=== PATIENT | female | born 2000 | race Caucasian/White ===

== ENCOUNTER 2020-03-03 13:22 | Inpatient (IN) | payer BC ==
--- NOTE | 2020-03-03 13:58 | EDM.PDOC ---
ED HPI GENERAL MEDICAL PROBLEM - General Chief Complaint: Respiratory Problem Stated Complaint: COVID + Time Seen by Provider: 03/03/20 13:48 Source of Information: Reports: Patient History Limitations: Reports: No Limitations - History of Present Illness INITIAL COMMENTS - FREE TEXT/NARRATIVE: 20-year-old female presents to the ED due to increased dyspnea at home. Patient became ill last February 24 with acute onset of fever chills and body aches and mild headache. Condition continued to gradually worsen over the week. She was therefore tested for COVID-19 illness on ThursdayFeb 27 and and was reportedly positive on -. Therefore she is on about day 8 of current illness. O2 sats on room air here are 71%. She is morbidly obese with an estimated weight by her of 460 pounds. She is not diabetic. She takes no medications. She was placed on oxygen by nursing staff and titrated up to 5 L/min by nasal cannula. I have placed her on 6 L. O2 sats range between 90 and 96%. She reports she is not been able to sleep lying flat for the last 3 days. She has been sleeping upright in a recliner. She has had fever and chills persisting even up until today. She has been using Tylenol and Motrin for fever and body ache relief. Loss of appetite for 3 days. Has been taking adequate fluids but only yogurt and a few other soft foods. No diarrhea. 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 She lives at home with her parents. Patient denies any possibility of as she is not sexually active. Onset: Sudden Onset Date: 02/25/20 Duration: Day(s):, Constant, Getting Worse Location: Reports: Chest (Dyspnea) Quality: Reports: Other (Dyspnea at rest with persistent fever secondary to COVID-19 illness.) Severity: Moderate Improves with: Reports: Rest, Other (Sitting up. She cannot lay flat.) Worsens with: Reports: Movement (Walking plays around immediately. She cannot lie flat.) Associated Symptoms: Reports: Cough, cough w sputum, Fever/Chills, Headaches, Loss of Appetite (Headaches initially onset of illness better now.), Malaise, Shortness of Breath, Weakness (Lysed weakness.). Denies: Confusion, Chest Pain, Diaphoresis (Amounts of white sputum.), Nausea/Vomiting, Rash, Seizure, Syncope (At rest.) Treatments BAKERY DEMONSTRATOR: Reports: Acetaminophen Chest Pain Score (Numeric/FACES): 4 - Related Data Allergies Allergy/AdvReac Type Severity Reaction Status Date / Time No Known Allergies Allergy Verified 03/03/20 13:33 Home Meds: Home Meds Spironolactone [Aldactone] 50 mg PO BID 03/03/20 [History] Past Medical History Endocrine/Metabolic History: Reports: Obesity/BMI 30+ Social & Family History - Living Situation & Occupation Living situation: Reports: Single, with Family (Lives with her parents.) Occupation: Employed (Patient works as a speech therapist at [employer] here in [place].) ED ROS GENERAL - Review of Systems Review Of Systems: See Below Constitutional: Reports: Fever, Chills, Malaise, Weakness, Fatigue, Decreased Appetite HEENT: Reports: Other Respiratory: Reports: Shortness of Breath (Tita had sore throat now somewhat be tter.), Cough, Sputum (Is no white sputum production.). Denies: Wheezing, Pleuritic Chest Pain, Hemoptysis Cardiovascular: Reports: Dyspnea on Exertion, Orthopnea. Denies: Chest Pain, Blood Pressure Problem, Claudication, Edema, Lightheadedness Endocrine: Reports: Fatigue (There.) GI/Abdominal: Reports: Diarrhea (Had some mild diarrhea with initial onset of illness but not now.), Decreased Appetite (Taking adequate fluids but not able to take much in the way of solids.) : Reports: No Symptoms Musculoskeletal: Reports: Muscle Pain (Mild generalized myalgia. Better than it was initially.) Skin: Reports: No Symptoms Neurological: Reports: Headache, Difficulty Walking (Due to weakness. And shortness of breath on exertion.), Weakness. Denies: Confusion, Dizziness, Numbness, Syncope, Tingling Psychiatric: Reports: No Symptoms Hematologic/Lymphatic: Reports: No Symptoms Immunologic: Reports: No Symptoms ED EXAM, GENERAL - Physical Exam Exam: See Below Exam Limited By: No Limitations General Appearance: Alert, WD/WN, Mild Distress, Other (Temperature is 38.4. Heart rate was 116 at the bedside respiratory rate of 32/min with O2 sats of 71% on room air. She was placed immediately on oxygen titrated up to 6 L/min to maintain sats of 92% to 95%. Blood pressure is normal at 128/55. He was with blood pressure cuff on left forearm) Eye Exam: Bilateral Eye: Normal Inspection Throat/Mouth: Normal Inspection, Normal Lips, Normal Oropharynx, Other Head: Atraumatic, Normocephalic Neck: Normal Inspection, Supple, Non-Tender, Full Range of Motion. No: Lymphadenopathy (L), Lymphadenopathy (R) Respiratory/Chest: Lungs Clear (Tachypneic at rest 32/min with O2 sats of only 71% on room air.), Respiratory Distress, Decreased Breath Sounds (Decreased breath sounds to both posterior lung hadley due to obesity.). No: Rales, Rhonchi, Wheezing Cardiovascular: Normal Peripheral Pulses, No Edema, No Gallop (Minus tachycardia 116/min.), No Murmur, No Rub, Tachycardia Peripheral Pulses: 3+: Carotid (L), Carotid (R), Posterior Tibial (L), Posterior Tibial (R), Dorsalis Pedis (L), Dorsalis Pedis (R) GI/Abdominal: Soft, Non-Tender, No Organomegaly, No Mass, Pelvis Stable, Other (Morbidly obese. This limits ability to palpate solid organs. No surgical scars.) Back Exam: No: CVA Tenderness (L), CVA Tenderness (R) Extremities: Normal Inspection, Normal Range of Motion, Non-Tender Neurological: Alert, Oriented, CN II-XII Intact, Normal Cognition Psychiatric: Normal Affect, Normal Mood Skin Exam: Warm, Dry, Intact, Normal Color, No Rash EKG INTERPRETATION EKG Date: 03/03/20 Time: 14:29 Rhythm: Other (Sinus tachycardia at 101/min.) Rate (Beats/Min): 101 [place]: Normal QRS: Other (Initial poor R wave transition may be due to lead placement. Decreased voltage precordial leads. Tall R waves in lead I suggest possibility of left ventricular appear to be.) ST-T: Normal QT: Prolonged (Minimally prolonged.) EKG Interpretation Comments: Borderline ECG. Course - Vital Signs Last Recorded V/S: Last Vital Signs Temp 38.4 C H 03/03/20 13:30 Pulse 116 H 03/03/20 13:30 Resp 32 H 03/03/20 13:30 BP 128/55 L 03/03/20 13:30 Pulse Ox 89 L 03/03/20 14:05 - Orders/Labs/Meds Orders: Active Orders 24 hr Category Date Time Status Admission Status [Patient Status] [ADT] Routine ADT 03/03/20 17:44 Ordered EKG Documentation Completion [RC] STAT Care 03/03/20 14:02 Active Oxygen Therapy [RC] ASDIRECTED Care 03/03/20 14:05 Active URINALYSIS W/MICROSCOPIC [UA W/MICROSCOPIC] [URIN] Stat Lab 03/03/20 14:04 Ordered Dextrose 5%-0.9% NaCl [Dextrose 5%-Normal Saline] 1,000 Med 03/03/20 14:15 Active ml IV ASDIRECTED Remdesivir (Eua) [Remdesivir (EUA)] 100 mg Med 03/05/20 15:00 Active Sodium Chloride 0.9% [Normal Saline] 100 ml IV Q24H Sodium Chloride 0.9% [Normal Saline] 100 ml Med 03/03/20 16:15 Active IV ASDIRECTED Sodium Chloride 0.9% [Saline Flush] Med 03/03/20 16:11 Active 10 ml FLUSH ONETIME PRN Tocilizumab [Actemra] 800 mg Med 03/03/20 21:00 Active Sodium Chloride 0.9% [Normal Saline] 60 ml IV Q12H dexAMETHasone [Dexamethasone] Med 03/03/20 15:00 Active 6 mg IVPUSH Q24H Isolation [COMM] Routine Oth 03/03/20 13:48 Ordered Medication Orders Dexamethasone (Dexamethasone) 6 mg IVPUSH Q24H LOUISE Last Admin: 03/03/20 15:49 Dose: 6 mg Documented by: [id number] Dextrose/Sodium Chloride (Dextrose 5%-Normal Saline) 1,000 mls @ 200 mls/hr IV ASDIRECTED LOUISE Last Admin: 03/03/20 14:36 Dose: 200 mls/hr Documented by: TY Remdesivir 100 mg/ Sodium (Chloride) 100 mls @ 100 mls/hr IV Q24H LOUISE Sodium Chloride (Normal Saline) 100 mls @ 75 mls/hr IV ASDIRECTED LOUISE Last Admin: 03/03/20 17:00 Dose: 75 mls/hr Documented by: MISTY Tocilizumab 800 mg/ Sodium (Chloride) 100 mls @ 100 mls/hr IV Q12H LOUISE Stop: 03/04/20 09:59 Sodium Chloride (Saline Flush) 10 ml FLUSH ONETIME PRN PRN Reason: IV FLUSH Last Admin: 03/03/20 16:59 Dose: 10 ml Documented by: MISTY Labs: Laboratory Tests 03/03/20 03/03/20 03/03/20 Range/Units 14:30 14:30 14:30 WBC 5.19 (3.98-10.04) K/mm3 RBC 4.62 (3.98-5.22) M/mm3 Hgb 13.2 (11.2-15.7) gm/dl Hct 41.8 (34.1-44.9) % MCV 90.5 (79.4-94.8) fl MCH 28.6 (25.6-32.2) pg MCHC 31.6 L (32.2-35.5) g/dl RDW Std Deviation 48.5 H (36.4-46.3) fL Plt Count 277 (182-369) K/mm3 MPV 9.5 (9.4-12.3) fl Neut % (Auto) 70.4 (34.0-71.1) % Lymph % (Auto) 18.7 L (19.3-51.7) % [place] % (Auto) 9.2 (4.7-12.5) % Eos % (Auto) 0 L (0.7-5.8) Baso % (Auto) 0.4 (0.1-1.2) % Neut # (Auto) 3.65 (1.56-6.13) K/mm3 Lymph # (Auto) 0.97 L (1.18-3.74) K/mm3 [place] # (Auto) 0.48 H (0.24-0.36) K/mm3 Eos # (Auto) 0.00 L (0.04-0.36) K/mm3 Baso # (Auto) 0.02 (0.01-0.08) K/mm3 PT 10.9 (9.7-11.7) SECONDS INR 1.02 APTT 34 H (22-31) SECONDS D-Dimer, Quantitative 0.72 H (0.19-0.50) mg/L Puncture Site ABG pH (7.35-7.45) ABG pCO2 (35.0-45.0) mmHg ABG pO2 (80.0-100.0) mmHg ABG HCO3 (22.0-26.0) meq/L ABG O2 Saturation (96.0-97.0) % ABG Base Excess (-2-2.0) Jak Test A-a Gradient mmHg O2 Delivery Device Oxygen Flow Rate FiO2 (21.00-100.00) % Sodium 137 (136-145) mEq/L Potassium 3.6 (3.5-5.1) mEq/L Chloride 101 (98-107) mEq/L Carbon Dioxide 25 (21-32) mEq/L Anion Gap 14.6 (5-15) BUN 13 (7-18) mg/dL Creatinine 0.8 (0.55-1.02) mg/dL Est Cr Clr Drug Dosing 111.27 mL/min Estimated GFR (MDRD) > 60 (>60) mL/min BUN/Creatinine Ratio 16.3 (14-18) Glucose 100 (74-106) mg/dL Calcium 8.5 (8.5-10.1) mg/dL Magnesium 2.1 (1.8-2.4) mg/dl Ferritin (8-252) ng/ml Total Bilirubin 0.4 (0.2-1.0) mg/dL AST 47 H (15-37) U/L ALT 52 (14-59) U/L Alkaline Phosphatase 48 (46-116) U/L Lactate Dehydrogenase 473 H (81-234) U/L Troponin I 0.041 (0.00-0.056) ng/mL C-Reactive Protein (<1.0) mg/dL NT-Pro-B Natriuret Pep (0-125) pg/mL Total Protein 7.9 (6.4-8.2) g/dl Albumin 3.0 L (3.4-5.0) g/dl Globulin 4.9 gm/dL Albumin/Globulin Ratio 0.6 L (1-2) TSH 3rd Generation 1.511 (0.358-3.74) uIU/mL HCG, Qual (NEGATIVE) 03/03/20 03/03/20 03/03/20 Range/Units 14:30 14:30 14:30 WBC (3.98-10.04) K/mm3 RBC (3.98-5.22) M/mm3 Hgb (11.2-15.7) gm/dl Hct (34.1-44.9) % MCV (79.4-94.8) fl MCH (25.6-32.2) pg MCHC (32.2-35.5) g/dl RDW Std Deviation (36.4-46.3) fL Plt Count (182-369) K/mm3 MPV (9.4-12.3) fl Neut % (Auto) (34.0-71.1) % Lymph % (Auto) (19.3-51.7) % [place] % (Auto) (4.7-12.5) % Eos % (Auto) (0.7-5.8) Baso % (Auto) (0.1-1.2) % Neut # (Auto) (1.56-6.13) K/mm3 Lymph # (Auto) (1.18-3.74) K/mm3 [place] # (Auto) (0.24-0.36) K/mm3 Eos # (Auto) (0.04-0.36) K/mm3 Baso # (Auto) (0.01-0.08) K/mm3 PT (9.7-11.7) SECONDS INR APTT (22-31) SECONDS D-Dimer, Quantitative (0.19-0.50) mg/L Puncture Site ABG pH (7.35-7.45) ABG pCO2 (35.0-45.0) mmHg ABG pO2 (80.0-100.0) mmHg ABG HCO3 (22.0-26.0) meq/L ABG O2 Saturation (96.0-97.0) % ABG Base Excess (-2-2.0) Jak Test A-a Gradient mmHg O2 Delivery Device Oxygen Flow Rate FiO2 (21.00-100.00) % Sodium (136-145) mEq/L Potassium (3.5-5.1) mEq/L Chloride (98-107) mEq/L Carbon Dioxide (21-32) mEq/L Anion Gap (5-15) BUN (7-18) mg/dL Creatinine (0.55-1.02) mg/dL Est Cr Clr Drug Dosing mL/min Estimated GFR (MDRD) (>60) mL/min BUN/Creatinine Ratio (14-18) Glucose (74-106) mg/dL Calcium (8.5-10.1) mg/dL Magnesium (1.8-2.4) mg/dl Ferritin 331 H (8-252) ng/ml Total Bilirubin (0.2-1.0) mg/dL AST (15-37) U/L ALT (14-59) U/L Alkaline Phosphatase (46-116) U/L Lactate Dehydrogenase (81-234) U/L Troponin I (0.00-0.056) ng/mL C-Reactive Protein 15.5 H* (<1.0) mg/dL NT-Pro-B Natriuret Pep 559 H (0-125) pg/mL Total Protein (6.4-8.2) g/dl Albumin (3.4-5.0) g/dl Globulin gm/dL Albumin/Globulin Ratio (1-2) TSH 3rd Generation (0.358-3.74) uIU/mL HCG, Qual Negative (NEGATIVE) 03/03/20 Range/Units 15:45 WBC (3.98-10.04) K/mm3 RBC (3.98-5.22) M/mm3 Hgb (11.2-15.7) gm/dl Hct (34.1-44.9) % MCV (79.4-94.8) fl MCH (25.6-32.2) pg MCHC (32.2-35.5) g/dl RDW Std Deviation (36.4-46.3) fL Plt Count (182-369) K/mm3 MPV (9.4-12.3) fl Neut % (Auto) (34.0-71.1) % Lymph % (Auto) (19.3-51.7) % [place] % (Auto) (4.7-12.5) % Eos % (Auto) (0.7-5.8) Baso % (Auto) (0.1-1.2) % Neut # (Auto) (1.56-6.13) K/mm3 Lymph # (Auto) (1.18-3.74) K/mm3 [place] # (Auto) (0.24-0.36) K/mm3 Eos # (Auto) (0.04-0.36) K/mm3 Baso # (Auto) (0.01-0.08) K/mm3 PT (9.7-11.7) SECONDS INR APTT (22-31) SECONDS D-Dimer, Quantitative (0.19-0.50) mg/L Puncture Site Lt radial ABG pH 7.41 (7.35-7.45) ABG pCO2 39.6 (35.0-45.0) mmHg ABG pO2 60.0 L (80.0-100.0) mmHg ABG HCO3 24.6 (22.0-26.0) meq/L ABG O2 Saturation 88.9 L (96.0-97.0) % ABG Base Excess 0.5 (-2-2.0) Jak Test Positive A-a Gradient 204 mmHg O2 Delivery Device Nasal cannula Oxygen Flow Rate 6.0 FiO2 44.00 (21.00-100.00) % Sodium (136-145) mEq/L Potassium (3.5-5.1) mEq/L Chloride (98-107) mEq/L Carbon Dioxide (21-32) mEq/L Anion Gap (5-15) BUN (7-18) mg/dL Creatinine (0.55-1.02) mg/dL Est Cr Clr Drug Dosing mL/min Estimated GFR (MDRD) (>60) mL/min BUN/Creatinine Ratio (14-18) Glucose (74-106) mg/dL Calcium (8.5-10.1) mg/dL Magnesium (1.8-2.4) mg/dl Ferritin (8-252) ng/ml Total Bilirubin (0.2-1.0) mg/dL AST (15-37) U/L ALT (14-59) U/L Alkaline Phosphatase (46-116) U/L Lactate Dehydrogenase (81-234) U/L Troponin I (0.00-0.056) ng/mL C-Reactive Protein (<1.0) mg/dL NT-Pro-B Natriuret Pep (0-125) pg/mL Total Protein (6.4-8.2) g/dl Albumin (3.4-5.0) g/dl Globulin gm/dL Albumin/Globulin Ratio (1-2) TSH 3rd Generation (0.358-3.74) uIU/mL HCG, Qual (NEGATIVE) Meds: Medications Generic Name Dose Route Start Last Admin Trade Name Freq PRN Reason Stop Dose Admin Dexamethasone 6 mg 03/03/20 15:00 03/03/20 15:49 Dexamethasone IVPUSH 6 mg Q24H LOUISE Administration Dextrose/Sodium Chloride 1,000 mls @ 200 mls/hr 03/03/20 14:15 03/03/20 14:36 Dextrose 5%-Normal Saline IV 200 mls/hr ASDIRECTED LOUISE Administration Remdesivir 100 mg/ Sodium 100 mls @ 100 mls/hr 03/05/20 15:00 Chloride IV Q24H LOUISE Sodium Chloride 100 mls @ 75 mls/hr 03/03/20 16:15 03/03/20 17:00 Normal Saline IV 75 mls/hr ASDIRECTED LOUISE Administration Tocilizumab 800 mg/ Sodium 100 mls @ 100 mls/hr 03/03/20 21:00 Chloride IV 03/04/20 09:59 Q12H LOUISE Sodium Chloride 10 ml 03/03/20 16:11 03/03/20 16:59 Saline Flush FLUSH 10 ml ONETIME PRN Administration IV FLUSH Discontinued Medications Generic Name Dose Route Start Last Admin Trade Name Freq PRN Reason Stop Dose Admin Acetaminophen 975 mg 03/03/20 15:16 03/03/20 16:11 Tylenol PO 03/03/20 15:17 975 mg ONETIME ONE Administration Remdesivir 200 mg/ Sodium 250 mls @ 250 mls/hr 03/03/20 14:51 03/03/20 15:55 Chloride IV 03/03/20 14:52 250 mls/hr ONETIME STA Administration Iopamidol 50 ml 03/03/20 16:11 03/03/20 16:59 Isovue-370 (76%) IVPUSH 03/03/20 16:12 50 ml ONETIME ONE Administration Iopamidol 100 ml 03/03/20 16:11 03/03/20 16:59 Isovue-370 (76%) IVPUSH 03/03/20 16:12 100 ml ONETIME ONE Administration Tocilizumab 800 mg 03/03/20 21:00 Actemra IV 03/04/20 09:01 Q12HR LOUISE - Radiology Interpretation Free Text/Narrative:: 20-year-old female presents to the ED with gradually worsening dyspnea over the last 3 days in particular. She has not been able to lie flat to sleep for the last 3 days. She has been sleeping in a recliner. Illness started suddenly last February 24. Onset of fever chills and headache and generalized myalgia. Cough started shortly thereafter. It is minimally productive of a white sputum. She continues to have fever and chills. Continues to use Tylenol on a every 4 to 6-hour basis. O2 sats upon arrival here were only 71% on room air. She required oxygen by nasal cannula titrated up to 6L/min to maintain sats greater than 92%. Plan she will require a chest x-ray and COVID-19 work- up. Clinically she will require admission to hospital due to hypoxia. - Re-Assessments/Exams Free Text/Narrative Re-Assessment/Exam: 03/03/20 15:00: Chest x-ray reveals heart size and mediastinum are within normal limits for portable technique. Patchy areas of increased density within the right upper and right lower lung as well as diffusely within the left lung with viral pneumonia after a stick of COVID-19 illness. I have discussed the case with hospitalist Dr. Storey and she will see the patient in the ED. Plan will be to have a CT pulmonary angiogram performed since she is so hypoxic on room air. Patient will be given 6 mg of dexamethasone IV now. Dr. Storey will also put in orders for Remdesivir IV. 03/03/20 15:33 Labs reveal a white count of 5.19. Differential shows 70% neutrophils on the auto differential. Hemoglobin is 13.2 with hematocrit of 41.8. Platelet counts 277,000. PT is 10.9 with an INR of 1.02. PTT is 34. D- dimer is elevated at 0.72. Sodium 137 with a potassium 3.6. Chloride 101 with a bicarb 25. Anion gap is 14.6. BUN is 13 with a creatinine of 0.8. GFR is greater than 60. BUN/creatinine ratio 16.3. Glucose 100. Calcium 8.5. Magnesium 2.1. Serum ferritin elevated at 331. Bilirubin 0.4 with a AST slightly elevated at 47. ALT is 52 alk phos stays normal at 48. LDH is elevated at 473. Troponin I is 0.041. BNP is elevated at 559. Total protein is 7.9 with an albumin fraction slightly low at 3.0. TSH is 1.5. Beta-hCG is negative. 03/03/20 15:52: ABGs have been done. They reveal a pH of 7.41 with a PCO2 of 39.6 and a PO2 of less than 60. O2 sats were 88.9% and this was carried out on 6 L/min by nasal cannula. Dr. Storey is aware of the ABG results. 03/03/20 17:46 Patient will now be admitted to the hospital per Dr. Storey-- hospitalist. Her CT pulmonary angiogram has been completed. Pulmonary arteries are not optimally opacified. 2 different attempts were made. No findings of pulmonary embolism within the main or proximal segmental branches are identified. Smaller subsegmental pulmonary emboli could easily be missed. Aorta shows no aneurysm. Heart shows no pericardial effusion. Fatty infiltration noted within the liver. Lung window settings show diffuse parenchymal densities within both sides of the chest with both upper and lower lungs involved. Findings have the appearance of COVID-19 pneumonia. No pleural effusion is seen. Departure - Departure Time of Disposition: 17:51 Disposition: Admitted As Inpatient 64 Condition: Serious Clinical Impression: COVID-19, Hypoxia, Viral pneumonia, Morbid obesity with BMI of 60.0-69.9, adult - Discharge Information Referrals: Cheyenne Moseley PA-C [Primary Care Provider] - Forms: ED Department Discharge Sepsis Event Note (ED) - Evaluation Sepsis Screening Result: No Definite Risk - Focused Exam Vital Signs: Vital Signs Temp Pulse Resp BP Pulse Ox Pulse Ox 03/03/20 14:05 89 L 03/03/20 13:30 38.4 C H 116 H 32 H 128/55 L 71 L - My Orders Last 24 Hours: My Active Orders 03/03/20 13:48 Isolation [COMM] Routine 03/03/20 14:02 EKG Documentation Completion [RC] STAT 03/03/20 14:04 URINALYSIS W/MICROSCOPIC [UA W/MICROSCOPIC] [URIN] Stat 03/03/20 14:05 Oxygen Therapy [RC] ASDIRECTED 03/03/20 14:15 Dextrose 5%-0.9% NaCl [Dextrose 5%-Normal Saline] 1,000 ml IV ASDIRECTED 03/03/20 16:11 Sodium Chloride 0.9% [Saline Flush] 10 ml FLUSH ONETIME PRN 03/03/20 16:15 Sodium Chloride 0.9% [Normal Saline] 100 ml IV ASDIRECTED 03/03/20 17:44 Admission Status [Patient Status] [ADT] Routine 03/03/20 21:00 Tocilizumab [Actemra] 800 mg Sodium Chloride 0.9% [Normal Saline] 60 ml IV Q12H - Assessment/Plan Last 24 Hours: My Active Orders 03/03/20 13:48 Isolation [COMM] Routine 03/03/20 14:02 EKG Documentation Completion [RC] STAT 03/03/20 14:04 URINALYSIS W/MICROSCOPIC [UA W/MICROSCOPIC] [URIN] Stat 03/03/20 14:05 Oxygen Therapy [RC] ASDIRECTED 03/03/20 14:15 Dextrose 5%-0.9% NaCl [Dextrose 5%-Normal Saline] 1,000 ml IV ASDIRECTED 03/03/20 16:11 Sodium Chloride 0.9% [Saline Flush] 10 ml FLUSH ONETIME PRN 03/03/20 16:15 Sodium Chloride 0.9% [Normal Saline] 100 ml IV ASDIRECTED 03/03/20 17:44 Admission Status [Patient Status] [ADT] Routine 03/03/20 21:00 Tocilizumab [Actemra] 800 mg Sodium Chloride 0.9% [Normal Saline] 60 ml IV Q12H
[2020-03-03] MEDS: Dextrose 5%-0.9% NaCl 1,000 ML IV SCH ×2 (14:36→20:12)
--- NOTE | 2020-03-03 14:48 | CR ---
Chest: Portable view of the chest was obtained. Comparison: No previous chest imaging is available. Heart size and mediastinum are within normal limits for portable technique. Patchy areas of increased density within the right upper and right lower lung as well as diffusely within the left lung. Bony structures are grossly intact. Impression: 1. Patchy areas of increased density on both sides of the chest. Given the multifocal nature of this finding, this is most likely due to Covid pneumonia. Diagnostic code #5 This report was dictated in MDT
[2020-03-03] MEDS ORDERED: Acetaminophen 325 MG Tab PO ONE (15:16)
[2020-03-03] MEDS: Dexamethasone 4 MG/ML SDV IVPUSH SCH (15:49)
[2020-03-03] MEDS ORDERED: Iopamidol 755 MG/ML 50 ML Bottle IVPUSH ONE (16:11)
[2020-03-03] MEDS ORDERED: Sodium Chloride 0.9% 10 ML Syringe FLUSH PRN (16:11)
[2020-03-03] MEDS ORDERED: Iopamidol 755 Mg/ML 100 ML Bottle IVPUSH ONE (16:11)
[2020-03-03] MEDS ORDERED: Sodium Chloride 0.9% 100 ML IV SCH (16:15)
--- NOTE | 2020-03-03 17:25 | CT ---
CT chest Technique: Multiple axial sections through the chest were obtained. Intravenous contrast was utilized. Comparison: Prior chest x-ray performed earlier on the same day (2:08 PM). Findings: Pulmonary arteries are not optimally opacified. 2 different attempts were made. No findings of pulmonary embolism within the main or proximal segmental branches are seen. Smaller subsegmental pulmonary emboli could easily be missed. Aorta shows no aneurysm. Heart shows no pericardial effusions. Fatty infiltration is noted within the liver. Lung window settings shows diffuse parenchymal densities within both sides of the chest within both upper and lower lungs. Findings have the appearance of Covid pneumonia. No pleural effusion is seen. Bone window settings were reviewed and shows no acute osseous finding. Impression: 1. Diffuse parenchymal densities on both sides of the chest having the appearance of Covid pneumonia. 2. No findings of pulmonary embolism within the main or segmental branches. Smaller subsegmental pulmonary emboli could be missed on this exam. 3. No additional abnormality is definitely appreciated. Diagnostic code #5 This report was dictated in MDT
[2020-03-03] MEDS ORDERED: Ondansetron 4 MG/2 ML SDV IV PRN (17:35)
[2020-03-03] MEDS ORDERED: Ondansetron 4 MG Tab.DIS PO PRN (17:35)
--- NOTE | 2020-03-03 17:49 | PCM.HP.2 ---
H&P History of Present Illness - General Date of Service: 03/03/20 Admit Problem/Dx: Admission Diagnosis/Problem Admission Diagnosis/Problem Viral pneumonia - History of Present Illness Initial Comments - Free Text/Narative: 20-year-old female presents to the ED due to increased dyspnea at home. As per patient was in usual state of health until last February 24 with acute onset of fever chills and body aches and mild headache which continued to worsen Associated with decrease oral intake, dry cough, malaise, aches and pains, fever measured at 103. Has been having orthopnea, sleeping only in recliner. Has been using Tylenol and Motrin for fever and body ache relief. Loss of appetite for 3 days. Has been taking adequate fluids but only yogurt and a few other soft foods. No diarrhea. Chest Pain Score (Numeric/FACES): 4 - Related Data Allergies/Adverse Reactions: Allergies Allergy/AdvReac Type Severity Reaction Status Date / Time No Known Allergies Allergy Verified 03/04/20 03:56 Home Medications: Home Meds Spironolactone [Aldactone] 50 mg PO BID 03/03/20 [History] Past Medical History HEENT History: Reports: Impaired Vision, Otitis Media Other HEENT History: wears eyeglasses Endocrine/Metabolic History: Reports: Obesity/BMI 30+ Dermatologic History: Reports: Other (See Below) Other Dermatologic History: acne - Infectious Disease History Infectious Disease History: Reports: Novel Coronavirus Social & Family History - Tobacco Use Smoking Status *Q: Never Smoker Second Hand Smoke Exposure: No - Caffeine Use Caffeine Use: Reports: None - Recreational Drug Use Recreational Drug Use: No - Living Situation & Occupation Living situation: Reports: Single, with Family (Lives with her parents.) Occupation: Employed (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 Denies: Night Sweats, Diaphoresis HEENT: Denies: Ear Pain, Eye Pain, Headaches, Hearing Changes, Rhinitis, Post Nasal Drip, Sinus Congestion, Sore Throat, Vertigo, Visual Changes Pulmonary: Reports: Shortness of Breath, Wheezing, Cough. Denies: Pleuritic Chest Pain, Sputum, Hemoptysis Cardiovascular: Reports: Dyspnea on Exertion, Orthopnea, PND, Edema, Lightheadedness. Denies: Chest Pain, Palpitations, Syncope, Claudication Gastrointestinal: Reports: Decreased Appetite. Denies: Abdominal Pain, Anorexia, Constipation, Diarrhea, Nausea, Vomiting Genitourinary: Denies: Dysuria, Frequency, Burning, Pain, Urgency, Incontinence Musculoskeletal: Denies: Joint Pain, Joint Swelling, Muscle Pain, Muscle Stiffness Skin: Denies: Cyanosis, Jaundice, Mottled, Pallor Psychiatric: Denies: Confusion, Depression, Mood Lability, Anxiety Neurological: Denies: Confusion, Dizziness, Headache, Numbness Exam - Exam Exam: See Below - Vital Signs Vital Signs: Last Vital Signs Temp 101.2 F H 03/03/20 13:30 Pulse 116 H 03/03/20 13:30 Resp 32 H 03/03/20 13:30 BP 128/55 L 03/03/20 13:30 Pulse Ox 89 L 03/03/20 14:05 Weight: 208.652 kg - Exam Quality Assessment: Supplemental Oxygen, Other (CONFOUNDED BY BODY HABITUS) General: Alert, Oriented, Mild Distress, Moderate Distress HEENT: Conjunctiva Clear, EACs Clear, EOMI, Mucosa Moist & [place] Neck: Supple Lungs: Decreased Breath Sounds, Crackles. No: Rales, Rhonchi, Rub, Stridor, Wheezing Cardiovascular: Regular Rate, Regular Rhythm. No: Systolic Murmur, Diastolic Murmur, Rubs, Gallop/S3, Gallop/S4 GI/Abdominal Exam: Normal Bowel Sounds, Soft, Non-Tender, Distended. No: Guarding, Rigid, Rebound Extremities: Normal Inspection, Normal Capillary Refill, Pedal Edema Peripheral Pulses: 2+: Radial (L), Radial (R) - Patient Data Result Diagrams: 03/04/20 05:32 03/04/20 05:32 Sepsis Event Note - Evaluation Sepsis Screening Result: No Definite Risk - Problem List (1) Pneumonia due to COVID-19 virus SNOMED Code(s): 758607678 ICD Code: U07.1 - COVID-19; J12.89 - OTHER VIRAL PNEUMONIA Status: Acute Current Visit: Yes (2) Acute hypoxemic respiratory failure due to COVID-19 SNOMED Code(s): 770034832 ICD Code: U07.1 - COVID-19; J96.01 - ACUTE RESPIRATORY FAILURE WITH HYPOXIA Status: Acute Current Visit: Yes (3) Tachycardia SNOMED Code(s): 8792291 ICD Code: R00.0 - TACHYCARDIA, UNSPECIFIED Status: Acute Current Visit: Yes (4) Fever SNOMED Code(s): 121768184 ICD Code: R50.9 - FEVER, UNSPECIFIED Status: Acute Current Visit: Yes (5) Hypoalbuminemia SNOMED Code(s): 787025550 ICD Code: E88.09 - [facility] DISORDERS OF PLASMA-PROTEIN METABOLISM, NEC Status: Acute Current Visit: Yes (6) Morbid obesity with BMI of 60.0-69.9, adult SNOMED Code(s): 166479417, 70934959306891 ICD Code: E66.01 - MORBID (SEVERE) OBESITY DUE TO EXCESS CALORIES; Z68.44 - BODY MASS INDEX (BMI) 60.0-69.9, ADULT Status: Acute Current Visit: Yes Problem List Initiated/Reviewed/Updated: Yes Assessment/Plan Comment:: ASSESSMENT Diagnosed around 8 days ago Has been having worsening shortness of breath, orthopnea, fatigue, malaise, fevers and chills On arrival to emergency department she was satting 71% on room air--> placed on nasal cannula at 6 L/min--> pulse ox came up to 92% Vital signs on admission: Blood pressure 128/55 (79); heart rate 116; respiratory rate 32; temp: 1.2; pulse ox 91% on room air Chest x-ray with increased density on right lung mainly in upper and lower lung and diffusely on left lung Admit labs: WBC 5.19, 30% neutrophils, no bands D-dimer 0.72 GFR greater than 60 Ferritin 331, LDH 473, troponin 0.0 41 Albumin 3 ABGs7.41/39.6/60/24.6/80 on 6 L/min nasal cannula (44%) CTA of the chest suboptimal but no blood clots were seen and diffuse parenchymal densities within both sides of the chest PLAN Pneumonia due to COVID-19 virus Acute hypoxemic respiratory failure due to COVID-19 Tachycardia/Fever Start Remdesivir to complete 5 days Start dexamethasone to complete 10 days Start Actemra x2 doses Order plasma infusion x2 Pulse ox goal between 92 and 96% Taper off nasal cannula as tolerated Maximum isolation precautions RT assess and treat Incentive spirometer and Acapella Procalcitonin level Morbid obesity with BMI of 60.0-69.9, adult Hypoalbuminemia Dietary consult Prealbumin level PROPHYLAXIS DVTLovenox 40 mg twice a day GInot indicated CODE STATUS: FULL CODE DISPOSITION: Patient with significant hypoxemia due to COVID pneumonia will be admitted for Remdesivir, Actemra, dexamethasone and convalescent plasma infusions. Oxygen supplementation is being provided and will taper down as tolerated - Mortality Measure Prognosis:: Good
[2020-03-03] MEDS ORDERED: Enoxaparin 40 MG/0.4 ML Syringe SUBCUT SCH (18:00)
[2020-03-03] MEDS ORDERED: Tocilizumab 400 MG/20 ML SDV IV SCH (21:00)
[2020-03-04] MEDS: Acetaminophen 325 MG Tab PO PRN ×2 (03:39→21:28)
[2020-03-04] MEDS: Dextrose 5%-0.9% NaCl 1,000 ML IV SCH (03:40)
--- NOTE | 2020-03-04 10:28 | PCM.PN ---
- General Info Date of Service: 03/04/20 Subjective Update: Feeling a lot better Tolerating diet Slept better - Patient Data Vitals - Most Recent: Last Vital Signs Temp 99.5 F 03/04/20 04:15 Pulse 85 03/04/20 03:53 Resp 34 H 03/04/20 03:40 BP 125/61 03/04/20 03:30 Pulse Ox 96 03/04/20 08:49 Weight - Most Recent: 211.147 kg - Exam Quality Assessment: Supplemental Oxygen General: Alert, Oriented, Cooperative, No Acute Distress HEENT: Pupils Equal, Pupils Reactive, EOMI, Mucous Membr. Moist/[place] Neck: Supple Lungs: Decreased Breath Sounds. No: Crackles, Rales, Rhonchi, Rub, Wheezing Cardiovascular: Regular Rate, Regular Rhythm. No: Murmurs, Gallops, Rubs GI/Abdominal Exam: Distended. No: Guarding, Rigid, Rebound, Tender Extremities: Non-Tender, Normal Capillary Refill, Pedal Edema Peripheral Pulses: 2+: Radial (L), Radial (R) Neurological: No New Focal Deficit Sepsis Event Note - Evaluation Sepsis Screening Result: Sepsis Risk - Problem List & Annotations (1) Acute hypoxemic respiratory failure due to COVID-19 SNOMED Code(s): 172714749 Code(s): U07.1 - COVID-19; J96.01 - ACUTE RESPIRATORY FAILURE WITH HYPOXIA Status: Acute Current Visit: Yes (2) Fever SNOMED Code(s): 890021680 Code(s): R50.9 - FEVER, UNSPECIFIED Status: Acute Current Visit: Yes (3) Hypoalbuminemia SNOMED Code(s): 083055721 Code(s): E88.09 - OTH DISORDERS OF PLASMA-PROTEIN METABOLISM, NEC Status: Acute Current Visit: Yes (4) Morbid obesity with BMI of 60.0-69.9, adult SNOMED Code(s): 269175078, 96392875415726 Code(s): E66.01 - MORBID (SEVERE) OBESITY DUE TO EXCESS CALORIES; Z68.44 - BODY MASS INDEX (BMI) 60.0-69.9, ADULT Status: Acute Current Visit: Yes (5) Pneumonia due to COVID-19 virus SNOMED Code(s): 000044444 Code(s): U07.1 - COVID-19; J12.89 - OTHER VIRAL PNEUMONIA Status: Acute Current Visit: Yes (6) Tachycardia SNOMED Code(s): 3265926 Code(s): R00.0 - TACHYCARDIA, UNSPECIFIED Status: Acute Current Visit: Yes - Problem List Review Problem List Initiated/Reviewed/Updated: Yes - Assessment Assessment:: 03/03/20 Diagnosed around 8 days ago Has been having worsening shortness of breath, orthopnea, fatigue, malaise, fevers and chills On arrival to emergency department she was satting 71% on room air--> placed on nasal cannula at 6 L/min--> pulse ox came up to 92% Vital signs on admission: Blood pressure 128/55 (79); heart rate 116; respiratory rate 32; temp: 1.2; pulse ox 91% on room air Chest x-ray with increased density on right lung mainly in upper and lower lung and diffusely on left lung Admit labs: WBC 5.19, 30% neutrophils, no bands D-dimer 0.72 GFR greater than 60 Ferritin 331, LDH 473, troponin 0.0 41 Albumin 3 ABGs7.41/39.6/60/24.6/80 on 6 L/min nasal cannula (44%) CTA of the chest suboptimal but no blood clots were seen and diffuse parenchymal densities within both sides of the chest PLAN Start Remdesivir to complete 5 days Start dexamethasone to complete 10 days Start Actemra x2 doses Order plasma infusion x2 Pulse ox goal between 92 and 96% Taper off nasal cannula as tolerated Maximum isolation precautions RT assess and treat Incentive spirometer and Acapella Procalcitonin level Dietary consult Prealbumin level Patient with significant hypoxemia due to COVID pneumonia will be admitted for Remdesivir, Actemra, dexamethasone and convalescent plasma infusions. Oxygen supplementation is being provided and will taper down as tolerated 03/04/20 Feeling better and slept well Clinically improved Vital signs trend Blood pressure:115-128/48-55 T-max 99.5 Heart rate 80-116 Pulse ox greater than 95% at 75% FiO2 New lab results D-dimer up from 0.72 L to 0.74 Ferritin down from 331-321 LDH up from 473-535 CRP down from 15.5-12.8 - Plan Plan:: Pneumonia due to COVID-19 virus Acute hypoxemic respiratory failure due to COVID-19 Tachycardia/Fever Continue Remdesivir 2/5 days Continue dexamethasone 2/10 days Continue Actemra dose #2 Plasma fusion today Pulse ox goal between 92 and 96% Taper off nasal cannula as tolerated BiPAP as tolerated Maximum isolation precautions RT assess and treat Incentive spirometer and Acapella Morbid obesity with BMI of 60.0-69.9, adult Hypoalbuminemia Dietary consult Prealbumin level PROPHYLAXIS DVTLovenox 40 mg twice a day GInot indicated CODE STATUS: FULL CODE DISPOSITION: Patient with significant hypoxemia due to COVID pneumonia will remain admitted for Remdesivir, Actemra, dexamethasone and convalescent plasma infusions. Oxygen supplementation is being provided and will taper down as tolerated
[2020-03-04] MEDS: Enoxaparin 40 MG/0.4 ML Syringe SUBCUT SCH ×2 (10:43→21:20)
[2020-03-04] MEDS: REMDESIVIR (EUA) 100 MG in Sodium Chloride 0.9% 100 ML IV SCH (15:27)
[2020-03-04] MEDS: Dexamethasone 4 MG/ML SDV IVPUSH SCH (15:27)
[2020-03-05] MEDS: Enoxaparin 40 MG/0.4 ML Syringe SUBCUT SCH ×2 (08:56→21:04)
[2020-03-05] MEDS: Dexamethasone 4 MG Tab PO SCH (14:05)
[2020-03-05] MEDS: REMDESIVIR (EUA) 100 MG in Sodium Chloride 0.9% 100 ML IV SCH (14:07)
--- NOTE | 2020-03-05 16:54 | PCM.PN ---
- General Info Date of Service: 03/05/20 Admission Dx/Problem (Free Text): Admission Diagnosis/Problem Admission Diagnosis/Problem Viral pneumonia Subjective Update: Feeling better. Tolerates bipap. Appetite is poor. Having diarrhea stools. Functional Status: Reports: Pain Controlled, Incentive Spirometry. Denies: Tolerating Diet (poor appetite) - Review of Systems General: Reports: Weakness, Fatigue. Denies: Appetite (poor) HEENT: Reports: No Symptoms Pulmonary: Reports: Shortness of Breath, Cough. Denies: Sputum Cardiovascular: Reports: No Symptoms Gastrointestinal: Reports: Decreased Appetite, Diarrhea, Nausea. Denies: Abdominal Pain, Constipation, Vomiting Genitourinary: Reports: No Symptoms Musculoskeletal: Reports: No Symptoms Skin: Reports: No Symptoms Neurological: Reports: No Symptoms Psychiatric: Reports: No Symptoms - Patient Data Weight - Most Recent: 464 lb 12.8 oz - Exam Quality Assessment: Supplemental Oxygen, DVT Prophylaxis General: Alert, Oriented, Cooperative, Mild Distress HEENT: Pupils Equal, Mucous Membr. Moist/[place] Neck: Supple, Trachea Midline. No: Lymphadenopathy Lungs: Decreased Breath Sounds, Crackles (in the bases) Cardiovascular: Regular Rate, Regular Rhythm, No Murmurs GI/Abdominal Exam: Normal Bowel Sounds, Soft, Non-Tender, No Distention (Female) Exam: Deferred Back Exam: Normal Inspection, Full Range of Motion Extremities: Normal Inspection, Normal Range of Motion, Non-Tender, No Pedal Edema, Normal Capillary Refill Peripheral Pulses: 2+: Radial (L), Radial (R), Dorsalis Pedis (L), Dorsalis Pedis (R) Skin: Warm, Dry, Intact Neurological: No New Focal Deficit Psy/Mental Status: Alert, Normal Affect, Normal Mood Sepsis Event Note - Evaluation Sepsis Screening Result: No Definite Risk - Problem List & Annotations (1) Acute hypoxemic respiratory failure due to COVID-19 SNOMED Code(s): 684115898 Code(s): U07.1 - COVID-19; J96.01 - ACUTE RESPIRATORY FAILURE WITH HYPOXIA Status: Acute Priority: High Current Visit: Yes (2) Fever SNOMED Code(s): 091673192 Code(s): R50.9 - FEVER, UNSPECIFIED Status: Acute Priority: High Current Visit: Yes Qualifiers: Fever type: unspecified Qualified Code(s): R50.9 - Fever, unspecified (3) Hypoalbuminemia SNOMED Code(s): 470226378 Code(s): E88.09 - OTH DISORDERS OF PLASMA-PROTEIN METABOLISM, NEC Status: Acute Priority: High Current Visit: Yes (4) Morbid obesity with BMI of 60.0-69.9, adult SNOMED Code(s): 410819605, 40374537230805 Code(s): E66.01 - MORBID (SEVERE) OBESITY DUE TO EXCESS CALORIES; Z68.44 - B ALEX MASS INDEX (BMI) 60.0-69.9, ADULT Status: Chronic Priority: High Current Visit: Yes (5) Pneumonia due to COVID-19 virus SNOMED Code(s): 430327107 Code(s): U07.1 - COVID-19; J12.89 - OTHER VIRAL PNEUMONIA Status: Acute Current Visit: Yes (6) Tachycardia SNOMED Code(s): 9659713 Code(s): R00.0 - TACHYCARDIA, UNSPECIFIED Status: Acute Priority: High Current Visit: Yes - Problem List Review Problem List Initiated/Reviewed/Updated: Yes - My Orders Last 24 Hours: My Active Orders 03/05/20 10:41 Consult to Dietary [Consult to Bottling Line Attendant] [CONS] Routine 03/05/20 11:12 Verify Patient Consent Obtain [RC] ASDIRECTED Transfuse Fresh Frozen Plasma [COMM] Routine 03/05/20 11:38 ABO/RH TYPE [BBK] Routine FRESH FROZEN PLASMA [BBK] Routine - Assessment Assessment:: 03/03/20 Diagnosed around 8 days ago Has been having worsening shortness of breath, orthopnea, fatigue, malaise, fevers and chills On arrival to emergency department she was satting 71% on room air--> placed on nasal cannula at 6 L/min--> pulse ox came up to 92% Vital signs on admission: Blood pressure 128/55 (79); heart rate 116; respiratory rate 32; temp: 1.2; pulse ox 91% on room air Chest x-ray with increased density on right lung mainly in upper and lower lung and diffusely on left lung Admit labs: WBC 5.19, 30% neutrophils, no bands D-dimer 0.72 GFR greater than 60 Ferritin 331, LDH 473, troponin 0.0 41 Albumin 3 ABGs7.41/39.6/60/24.6/80 on 6 L/min nasal cannula (44%) CTA of the chest suboptimal but no blood clots were seen and diffuse parenchymal densities within both sides of the chest PLAN Start Remdesivir to complete 5 days Start dexamethasone to complete 10 days Start Actemra x2 doses Order plasma infusion x2 Pulse ox goal between 92 and 96% Taper off nasal cannula as tolerated Maximum isolation precautions RT assess and treat Incentive spirometer and Acapella Procalcitonin level Dietary consult Prealbumin level Patient with significant hypoxemia due to COVID pneumonia will be admitted for Remdesivir, Actemra, dexamethasone and convalescent plasma infusions. Oxygen supplementation is being provided and will taper down as tolerated 03/04/20 Feeling better and slept well Clinically improved Vital signs trend Blood pressure:115-128/48-55 T-max 99.5 Heart rate 80-116 Pulse ox greater than 95% at 75% FiO2 New lab results D-dimer up from 0.72 L to 0.74 Ferritin down from 331-321 LDH up from 473-535 CRP down from 15.5-12.8 03/05/20 Feeling better and slept well Clinically improved Tolerating bipap Day 3 of Remdesivir Convalescent plasma today, 2 units I spoke with the patient to provide information about convalescent plasma for her. I offered her the "Fact sheet for Patients and Parents/Caregivers" for COVID-19 convalescent plasma to read and review. I stated the therapy has been approved by an emergency use authorization (EUA) process and has not full been FDA reviewed or approved. I shared potential risks from the therapy including transmission of blood borne pathogens such as HIV and hepatitis C., allergic and transfusion related reactions, posttransfusion purpura. Additionally theoretical risks including a phenomenon called antibody-dependent enhancement of infection such as is seen in dengue or attenuation of an immune response that may make patients more susceptible to re-infection. I discussed there are other potential treatment options that are currently not FDA approved to treat COVID-19. Offered opportunity to ask questions and all questions were answered. The patient voiced understanding and agreed to proceed with treatment for her. Vital signs trend Blood pressure:115-128/48-55 T-max 99.5 Heart rate 80-116 Pulse ox greater than 95% at 75% FiO2 New lab results ABGs pH 7.35 pCO2 49.2 pO2 60.0 HCO3 26.2 on simple mask at 10 liters - Plan Plan:: Pneumonia due to COVID-19 virus Acute hypoxemic respiratory failure due to COVID-19 Tachycardia/Fever Continue Remdesivir 3/5 days Continue dexamethasone 3/10 days Plasma infusion today Pulse ox goal between 92 and 96% Taper off nasal cannula as tolerated BiPAP as tolerated Maximum isolation precautions RT assess and treat Incentive spirometer and Acapella Morbid obesity with BMI of 60.0-69.9, adult Hypoalbuminemia Dietary consult Prealbumin level PROPHYLAXIS DVTLovenox 40 mg twice a day GInot indicated CODE STATUS: FULL CODE DISPOSITION: Patient with significant hypoxemia due to COVID pneumonia will remain admitted for Remdesivir, Actemra, dexamethasone and convalescent plasma infusions. Oxygen supplementation is being provided and will taper down as tolerated
[2020-03-05] MEDS ORDERED: Sodium Chloride 0.9% 250 ML IV SCH (19:45)
[2020-03-06] MEDS: Enoxaparin 40 MG/0.4 ML Syringe SUBCUT SCH (09:06)
--- NOTE | 2020-03-06 14:13 | PCM.PN ---
- General Info Date of Service: 03/06/20 Admission Dx/Problem (Free Text): Admission Diagnosis/Problem Admission Diagnosis/Problem Viral pneumonia Subjective Update: Feels better today. Appetite much better. Still needs encouragement to do IS. O2 still dropping into the 70's when patient ambulating. Functional Status: Reports: Pain Controlled, Tolerating Diet, Ambulating, Urinating, Incentive Spirometry - Review of Systems General: Reports: Fatigue, Appetite HEENT: Reports: No Symptoms Pulmonary: Reports: Shortness of Breath, Cough. Denies: Sputum Cardiovascular: Reports: Dyspnea on Exertion. Denies: Edema Gastrointestinal: Reports: Diarrhea. Denies: Abdominal Pain, Constipation, Decreased Appetite, Nausea, Vomiting Genitourinary: Reports: No Symptoms Musculoskeletal: Reports: No Symptoms Skin: Reports: No Symptoms Neurological: Reports: No Symptoms Psychiatric: Reports: No Symptoms - Patient Data Weight - Most Recent: 464 lb 12.8 oz - Exam Quality Assessment: Supplemental Oxygen, DVT Prophylaxis (lovenox) General: Alert, Oriented, Cooperative, Moderate Distress HEENT: Pupils Equal, Pupils Reactive, Mucous Membr. Moist/[place] Neck: Supple, Trachea Midline. No: Lymphadenopathy Lungs: Decreased Breath Sounds, Crackles (bases) Cardiovascular: Regular Rate, Regular Rhythm, No Murmurs GI/Abdominal Exam: Normal Bowel Sounds, Soft, Non-Tender, No Distention (Female) Exam: Deferred Back Exam: Normal Inspection, Full Range of Motion Extremities: Normal Inspection, Normal Range of Motion, Non-Tender, No Pedal Edema, Normal Capillary Refill Peripheral Pulses: 2+: Radial (L), Radial (R), Dorsalis Pedis (L), Dorsalis Pedis (R) Skin: Warm, Dry, Intact Neurological: No New Focal Deficit Psy/Mental Status: Alert, Normal Affect, Normal Mood Sepsis Event Note - Evaluation Sepsis Screening Result: No Definite Risk - Problem List & Annotations (1) Acute hypoxemic respiratory failure due to COVID-19 SNOMED Code(s): 865686359 Code(s): U07.1 - COVID-19; J96.01 - ACUTE RESPIRATORY FAILURE WITH HYPOXIA Status: Acute Priority: High Current Visit: Yes (2) Fever SNOMED Code(s): 870342135 Code(s): R50.9 - FEVER, UNSPECIFIED Status: Acute Priority: High Current Visit: Yes Qualifiers: Fever type: unspecified Qualified Code(s): R50.9 - Fever, unspecified (3) Hypoalbuminemia SNOMED Code(s): 956423503 Code(s): E88.09 - OTH DISORDERS OF PLASMA-PROTEIN METABOLISM, NEC Status: Acute Priority: High Current Visit: Yes (4) Morbid obesity with BMI of 60.0-69.9, adult SNOMED Code(s): 783491310, 86156343560618 Code(s): E66.01 - MORBID (SEVERE) OBESITY DUE TO EXCESS CALORIES; Z68.44 - BODY MASS INDEX (BMI) 60.0-69.9, ADULT Status: Chronic Priority: High Current Visit: Yes (5) Pneumonia due to COVID-19 virus SNOMED Code(s): 079852390 Code(s): U07.1 - COVID-19; J12.89 - OTHER VIRAL PNEUMONIA Status: Acute Current Visit: Yes (6) Tachycardia SNOMED Code(s): 9105019 Code(s): R00.0 - TACHYCARDIA, UNSPECIFIED Status: Acute Priority: High Current Visit: Yes - Problem List Review Problem List Initiated/Reviewed/Updated: Yes - My Orders Last 24 Hours: My Active Orders 03/06/20 08:46 OT Evaluation and Treatment [CONS] Routine PT Evaluation and Treatment [CONS] Routine 03/06/20 21:00 Enoxaparin [Lovenox] 100 mg SUBCUT Q12H 03/07/20 05:11 CBC WITH AUTO DIFF [HEME] DAILY 03/08/20 05:11 CBC WITH AUTO DIFF [HEME] DAILY 03/09/20 05:11 CBC WITH AUTO DIFF [HEME] DAILY 03/10/20 05:11 CBC WITH AUTO DIFF [HEME] DAILY 03/11/20 05:11 CBC WITH AUTO DIFF [HEME] DAILY - Assessment Assessment:: 03/03/20 Diagnosed around 8 days ago Has been having worsening shortness of breath, orthopnea, fatigue, malaise, fevers and chills On arrival to emergency department she was satting 71% on room air--> placed on nasal cannula at 6 L/min--> pulse ox came up to 92% Vital signs on admission: Blood pressure 128/55 (79); heart rate 116; respiratory rate 32; temp: 1.2; pulse ox 91% on room air Chest x-ray with increased density on right lung mainly in upper and lower lung and diffusely on left lung Admit labs: WBC 5.19, 30% neutrophils, no bands D-dimer 0.72 GFR greater than 60 Ferritin 331, LDH 473, troponin 0.0 41 Albumin 3 ABGs7.41/39.6/60/24.6/80 on 6 L/min nasal cannula (44%) CTA of the chest suboptimal but no blood clots were seen and diffuse parenchymal densities within both sides of the chest PLAN Start Remdesivir to complete 5 days Start dexamethasone to complete 10 days Start Actemra x2 doses Order plasma infusion x2 Pulse ox goal between 92 and 96% Taper off nasal cannula as tolerated Maximum isolation precautions RT assess and treat Incentive spirometer and Acapella Procalcitonin level Dietary consult Prealbumin level Patient with significant hypoxemia due to COVID pneumonia will be admitted for Remdesivir, Actemra, dexamethasone and convalescent plasma infusions. Oxygen supplementation is being provided and will taper down as tolerated 03/04/20 Feeling better and slept well Clinically improved Vital signs trend Blood pressure:115-128/48-55 T-max 99.5 Heart rate 80-116 Pulse ox greater than 95% at 75% FiO2 New lab results D-dimer up from 0.72 L to 0.74 Ferritin down from 331-321 LDH up from 473-535 CRP down from 15.5-12.8 03/05/20 Feeling better and slept well Clinically improved Tolerating bipap Day 3 of Remdesivir Convalescent plasma today, 2 units I spoke with the patient to provide information about convalescent plasma for her. I offered her the "Fact sheet for Patients and Parents/Caregivers" for COVID-19 convalescent plasma to read and review. I stated the therapy has been approved by an emergency use authorization (EUA) process and has not full been FDA reviewed or approved. I shared potential risks from the therapy including transmission of blood borne pathogens such as HIV and hepatitis C., allergic and transfusion related reactions, posttransfusion purpura. Additionally the oretical risks including a phenomenon called antibody-dependent enhancement of infection such as is seen in dengue or attenuation of an immune response that may make patients more susceptible to re-infection. I discussed there are other potential treatment options that are currently not FDA approved to treat COVID- 19. Offered opportunity to ask questions and all questions were answered. The patient voiced understanding and agreed to proceed with treatment for her. Vital signs trend Blood pressure:115-128/48-55 T-max 99.5 Heart rate 80-116 Pulse ox greater than 95% at 75% FiO2 New lab results ABGs pH 7.35 pCO2 49.2 pO2 60.0 HCO3 26.2 on simple mask at 10 liters 03/06/20 Feeling better and slept well in the prone position. Clinically improved Tolerating bipap and high flow O2 Day 4 of Remdesivir and dexamethasone Increase Lovenox dose to 1mg/kg bid Vital signs trend Blood pressure:106-152/59-86 T-max 98.5 Heart rate 74-87 Pulse ox 88-94% on high flow O2 at 50% New lab results ABGs pH 7.40 pCO2 46.2 pO2 68.0 HCO3 27.7 on biPAP D-dimer up from 0.74-1.77 Ferritin up from 321-344 CRP down from 12.8-3.1 Fibrinogen 494 - Plan Plan:: Pneumonia due to COVID-19 virus Acute hypoxemic respiratory failure due to COVID-19 Tachycardia/Fever Continue Remdesivir 4/5 days Continue dexamethasone 4/10 days Pulse ox goal between 92 and 96% BiPAP as tolerated Maximum isolation precautions RT assess and treat Incentive spirometer and Acapella Morbid obesity with BMI of 60.0-69.9, adult Hypoalbuminemia Dietary consult PROPHYLAXIS DVTLovenox 100 mg twice a day GInot indicated CODE STATUS: FULL CODE DISPOSITION: Patient with significant hypoxemia due to COVID pneumonia will remain admitted for Remdesivir and dexamethasone. Oxygen supplementation is being provided and will taper down as tolerated.
[2020-03-06] MEDS: Dexamethasone 4 MG Tab PO SCH (15:25)
[2020-03-06] MEDS: REMDESIVIR (EUA) 100 MG in Sodium Chloride 0.9% 100 ML IV SCH (15:26)
[2020-03-06] MEDS: Enoxaparin 100 MG/1 ML Syringe SUBCUT SCH (22:02)
[2020-03-07] MEDS: Enoxaparin 100 MG/1 ML Syringe SUBCUT SCH ×2 (09:41→20:59)
[2020-03-07] MEDS ORDERED: Potassium Chloride 20 MEQ Tab.ER PO ONE (09:44)
--- NOTE | 2020-03-07 13:05 | PCM.PN ---
- General Info Date of Service: 03/07/20 Admission Dx/Problem (Free Text): Admission Diagnosis/Problem Admission Diagnosis/Problem Viral pneumonia Subjective Update: Feels much better today. Still on high flow but titrating down. Still need to encourage hourly IS. Functional Status: Reports: Pain Controlled, Tolerating Diet, Incentive Spirometry - Review of Systems General: Reports: No Symptoms HEENT: Reports: No Symptoms Pulmonary: Reports: Shortness of Breath, Cough. Denies: Sputum Cardiovascular: Reports: No Symptoms Gastrointestinal: Reports: Diarrhea (much decreased from yesterday) Genitourinary: Reports: No Symptoms Musculoskeletal: Reports: No Symptoms Skin: Reports: No Symptoms Neurological: Reports: No Symptoms Psychiatric: Reports: No Symptoms - Patient Data Weight - Most Recent: 459 lb 6.4 oz - Exam Quality Assessment: Supplemental Oxygen (high flow O2), DVT Prophylaxis General: Alert, Oriented, Cooperative, Mild Distress HEENT: Pupils Equal, Pupils Reactive, Mucous Membr. Moist/[place] Neck: Supple, Trachea Midline. No: Lymphadenopathy Lungs: Decreased Breath Sounds. No: Crackles, Wheezing Cardiovascular: Regular Rate, Regular Rhythm GI/Abdominal Exam: Normal Bowel Sounds, Soft, Non-Tender, No Distention (Female) Exam: Deferred Back Exam: Normal Inspection, Full Range of Motion Extremities: Normal Inspection, Normal Range of Motion, Non-Tender, No Pedal Edema, Normal Capillary Refill Peripheral Pulses: 2+: Radial (L), Radial (R), Dorsalis Pedis (L), Dorsalis Pedis (R) Skin: Warm, Dry, Intact Neurological: No New Focal Deficit Psy/Mental Status: Alert, Normal Affect, Normal Mood Sepsis Event Note - Evaluation Sepsis Screening Result: No Definite Risk - Problem List & Annotations (1) Acute hypoxemic respiratory failure due to COVID-19 SNOMED Code(s): 638227312 Code(s): U07.1 - COVID-19; J96.01 - ACUTE RESPIRATORY FAILURE WITH HYPOXIA Status: Acute Priority: High Current Visit: Yes (2) Fever SNOMED Code(s): 319889160 Code(s): R50.9 - FEVER, UNSPECIFIED Status: Acute Priority: High Current Visit: Yes Qualifiers: Fever type: unspecified Qualified Code(s): R50.9 - Fever, unspecified (3) Hypoalbuminemia SNOMED Code(s): 257531759 Code(s): E88.09 - OTH DISORDERS OF PLASMA-PROTEIN METABOLISM, NEC Status: Acute Priority: High Current Visit: Yes (4) Morbid obesity with BMI of 60.0-69.9, adult SNOMED Code(s): 522799083, 66014431125866 Code(s): E66.01 - MORBID (SEVERE) OBESITY DUE TO EXCESS CALORIES; Z68.44 - BODY MASS INDEX (BMI) 60.0-69.9, ADULT Status: Chronic Priority: High Current Visit: Yes (5) Pneumonia due to COVID-19 virus SNOMED Code(s): 638453796 Code(s): U07.1 - COVID-19; J12.89 - OTHER VIRAL PNEUMONIA Status: Acute Current Visit: Yes (6) Tachycardia SNOMED Code(s): 4063730 Code(s): R00.0 - TACHYCARDIA, UNSPECIFIED Status: Acute Priority: High Current Visit: Yes - Problem List Review Problem List Initiated/Reviewed/Updated: Yes - My Orders Last 24 Hours: My Active Orders 03/06/20 21:00 Enoxaparin [Lovenox] 100 mg SUBCUT Q12H 03/08/20 05:11 CBC WITH AUTO DIFF [HEME] DAILY 03/09/20 05:11 CBC WITH AUTO DIFF [HEME] DAILY 03/10/20 05:11 CBC WITH AUTO DIFF [HEME] DAILY 03/11/20 05:11 CBC WITH AUTO DIFF [HEME] DAILY - Assessment Assessment:: 03/03/20 Diagnosed around 8 days ago Has been having worsening shortness of breath, orthopnea, fatigue, malaise, fevers and chills On arrival to emergency department she was satting 71% on room air--> placed on nasal cannula at 6 L/min--> pulse ox came up to 92% Vital signs on admission: Blood pressure 128/55 (79); heart rate 116; respiratory rate 32; temp: 1.2; pulse ox 91% on room air Chest x-ray with increased density on right lung mainly in upper and lower lung and diffusely on left lung Admit labs: WBC 5.19, 30% neutrophils, no bands D-dimer 0.72 GFR greater than 60 Ferritin 331, LDH 473, troponin 0.0 41 Albumin 3 ABGs7.41/39.6/60/24.6/80 on 6 L/min nasal cannula (44%) CTA of the chest suboptimal but no blood clots were seen and diffuse parenchymal densities within both sides of the chest PLAN Start Remdesivir to complete 5 days Start dexamethasone to complete 10 days Start Actemra x2 doses Order plasma infusion x2 Pulse ox goal between 92 and 96% Taper off nasal cannula as tolerated Maximum isolation precautions RT assess and treat Incentive spirometer and Acapella Procalcitonin level Dietary consult Prealbumin level Patient with significant hypoxemia due to COVID pneumonia will be admitted for Remdesivir, Actemra, dexamethasone and convalescent plasma infusions. Oxygen supplementation is being provided and will taper down as tolerated 03/04/20 Feeling better and slept well Clinically improved Vital signs trend Blood pressure:115-128/48-55 T-max 99.5 Heart rate 80-116 Pulse ox greater than 95% at 75% FiO2 New lab results D-dimer up from 0.72 L to 0.74 Ferritin down from 331-321 LDH up from 473-535 CRP down from 15.5-12.8 03/05/20 Feeling better and slept well Clinically improved Tolerating bipap Day 3 of Remdesivir Convalescent plasma today, 2 units I spoke with the patient to provide information about convalescent plasma for her. I offered her the "Fact sheet for Patients and Parents/Caregivers" for COVID-19 convalescent plasma to read and review. I stated the therapy has been approved by an emergency use authorization (EUA) process and has not full been FDA reviewed or approved. I shared potential risks from the therapy including transmission of blood borne pathogens such as HIV and hepatitis C., allergic and transfusion related reactions, posttransfusion purpura. Additionally theoretical risks including a phenomenon called antibody-dependent enhancement of infection such as is seen in dengue or attenuation of an immune response that may make patients more susceptible to re-infection. I discussed there are other potential treatment options that are currently not FDA approved to treat COVID-19. Offered opportunity to ask questions and all questions were answered. The patient voiced understanding and agreed to proceed with treatment for her. Vital signs trend Blood pressure:115-128/48-55 T-max 99.5 Heart rate 80-116 Pulse ox greater than 95% at 75% FiO2 New lab results ABGs pH 7.35 pCO2 49.2 pO2 60.0 HCO3 26.2 on simple mask at 10 liters 03/06/20 Feeling better and slept well in the prone position. Clinically improved Tolerating bipap and high flow O2 Day 4 of Remdesivir and dexamethasone Increase Lovenox dose to 1mg/kg bid Vital signs trend Blood pressure:106-152/59-86 T-max 98.5 Heart rate 74-87 Pulse ox 88-94% on high flow O2 at 50% New lab results ABGs pH 7.40 pCO2 46.2 pO2 68.0 HCO3 27.7 on biPAP D-dimer up from 0.74-1.77 Ferritin up from 321-344 CRP down from 12.8-3.1 Fibrinogen 494 03/07/20 Feeling better Clinically improved Titrating high flow O2 down Day 5 of Remdesivir and dexamethasone Taking po well Continues having diarrhea, but states it's much less than it had been Vital signs trend Blood pressure:131-143/49-70 T-max 98.6 Heart rate 76-84 Pulse ox 90-93% on FiO2 60% New lab results - Plan Plan:: Pneumonia due to COVID-19 virus Acute hypoxemic respiratory failure due to COVID-19 Tachycardia/Fever Continue Remdesivir 5/5 days Continue dexamethasone 5/10 days Pulse ox goal between 92 and 96% BiPAP and high flow O2 as tolerated Maximum isolation precautions RT assess and treat Incentive spirometer and Acapella -Prone positioning Morbid obesity with BMI of 60.0-69.9, adult Hypoalbuminemia Dietary consult PROPHYLAXIS DVTLovenox 100 mg twice a day GInot indicated CODE STATUS: FULL CODE DISPOSITION: Patient with significant hypoxemia due to COVID pneumonia will remain admitted for Remdesivir and dexamethasone. Oxygen supplementation is being provided and will taper down as tolerated.
[2020-03-07] MEDS: Dexamethasone 4 MG Tab PO SCH (15:16)
[2020-03-07] MEDS: REMDESIVIR (EUA) 100 MG in Sodium Chloride 0.9% 100 ML IV SCH (15:18)
[2020-03-08] MEDS: Enoxaparin 100 MG/1 ML Syringe SUBCUT SCH ×2 (09:52→21:17)
[2020-03-08] MEDS ORDERED: FLU VACC QS2020-21(6MOS UP)/PF 60 MCG/0.5 ML SYRINGE IM ONE (10:15)
--- NOTE | 2020-03-08 13:38 | PCM.PN ---
- General Info Date of Service: 03/08/20 Admission Dx/Problem (Free Text): Admission Diagnosis/Problem Admission Diagnosis/Problem Viral pneumonia Subjective Update: Much improved from yesterday. Eating well. Using incentive spirometer. Diarrhea still present but is much less. Functional Status: Reports: Tolerating Diet, Urinating, Incentive Spirometry - Review of Systems General: Reports: No Symptoms HEENT: Reports: No Symptoms Pulmonary: Reports: Shortness of Breath, Cough. Denies: Sputum Cardiovascular: Reports: No Symptoms Gastrointestinal: Reports: Diarrhea Genitourinary: Reports: No Symptoms Musculoskeletal: Reports: No Symptoms Skin: Reports: No Symptoms Neurological: Reports: No Symptoms Psychiatric: Reports: No Symptoms - Patient Data Weight - Most Recent: 457 lb 9.6 oz - Exam Quality Assessment: Supplemental Oxygen, DVT Prophylaxis (lovenox) General: Alert, Oriented, Cooperative, Mild Distress HEENT: Pupils Equal, Mucous Membr. Moist/[place] Neck: Supple, Trachea Midline. No: Lymphadenopathy Lungs: Decreased Breath Sounds Cardiovascular: Regular Rate, Regular Rhythm GI/Abdominal Exam: Normal Bowel Sounds, Soft, Non-Tender, No Distention (Female) Exam: Deferred Back Exam: Normal Inspection, Full Range of Motion Extremities: Normal Inspection, Normal Range of Motion, Non-Tender, No Pedal Edema, Normal Capillary Refill Peripheral Pulses: 2+: Radial (L), Radial (R), Dorsalis Pedis (L), Dorsalis Pedis (R) Skin: Warm, Dry, Intact Neurological: No New Focal Deficit Psy/Mental Status: Alert, Normal Affect, Normal Mood Sepsis Event Note - Evaluation Sepsis Screening Result: No Definite Risk - Problem List & Annotations (1) Acute hypoxemic respiratory failure due to COVID-19 SNOMED Code(s): 180597766 Code(s): U07.1 - ; J96.01 - ACUTE RESPIRATORY FAILURE WITH HYPOXIA Status: Acute Priority: High Current Visit: Yes (2) Fever SNOMED Code(s): 399841880 Code(s): R50.9 - FEVER, UNSPECIFIED Status: Acute Priority: High Current Visit: Yes Qualifiers: Fever type: unspecified Qualified Code(s): R50.9 - Fever, unspecified (3) Hypoalbuminemia SNOMED Code(s): 092410427 Code(s): E88.09 - OTH DISORDERS OF PLASMA-PROTEIN METABOLISM, NEC Status: Acute Priority: High Current Visit: Yes (4) Morbid obesity with BMI of 60.0-69.9, adult SNOMED Code(s): 107142939, 93474039118391 Code(s): E66.01 - MORBID (SEVERE) OBESITY DUE TO EXCESS CALORIES; Z68.44 - Status: Chronic Priority: High Current Visit: Yes (5) Pneumonia due to COVID-19 virus SNOMED Code(s): 105632137 Code(s): U07.1 - ; J12.89 - OTHER VIRAL PNEUMONIA Status: Acute Current Visit: Yes (6) Tachycardia SNOMED Code(s): 2854645 Code(s): R00.0 - TACHYCARDIA, UNSPECIFIED Status: Acute Priority: High Current Visit: Yes - Problem List Review Problem List Initiated/Reviewed/Updated: Yes - My Orders Last 24 Hours: My Active Orders 03/09/20 05:11 CBC WITH AUTO DIFF [HEME] DAILY 03/10/20 05:11 CBC WITH AUTO DIFF [HEME] DAILY 03/11/20 05:11 CBC WITH AUTO DIFF [HEME] DAILY - Assessment Assessment:: 03/03/20 Diagnosed around 8 days ago Has been having worsening shortness of breath, orthopnea, fatigue, malaise, fevers and chills On arrival to emergency department she was satting 71% on room air--> placed on nasal cannula at 6 L/min--> pulse ox came up to 92% Vital signs on admission: Blood pressure 128/55 (79); heart rate 116; respiratory rate 32; temp: 1.2; pulse ox 91% on room air Chest x-ray with increased density on right lung mainly in upper and lower lung and diffusely on left lung Admit labs: WBC 5.19, 30% neutrophils, no bands D-dimer 0.72 GFR greater than 60 Ferritin 331, LDH 473, troponin 0.0 41 Albumin 3 ABGs7.41/39.6/60/24.6/80 on 6 L/min nasal cannula (44%) CTA of the chest suboptimal but no blood clots were seen and diffuse parenchymal densities within both sides of the chest PLAN Start Remdesivir to complete 5 days Start dexamethasone to complete 10 days Start Actemra x2 doses Order plasma infusion x2 Pulse ox goal between 92 and 96% Taper off nasal cannula as tolerated Maximum isolation precautions RT assess and treat Incentive spirometer and Acapella Procalcitonin level Dietary consult Prealbumin level Patient with significant hypoxemia due to COVID pneumonia will be admitted for Remdesivir, Actemra, dexamethasone and convalescent plasma infusions. Oxygen supplementation is being provided and will taper down as tolerated 03/04/20 Feeling better and slept well Clinically improved Vital signs trend Blood pressure:115-128/48-55 T-max 99.5 Heart rate 80-116 Pulse ox greater than 95% at 75% FiO2 New lab results D-dimer up from 0.72 L to 0.74 Ferritin down from 331-321 LDH up from 473-535 CRP down from 15.5-12.8 03/05/20 Feeling better and slept well Clinically improved Tolerating bipap Day 3 of Remdesivir Convalescent plasma today, 2 units I spoke with the patient to provide information about convalescent plasma for her. I offered her the "Fact sheet for Patients and Parents/Caregivers" for COVID-19 convalescent plasma to read and review. I stated the therapy has been approved by an emergency use authorization (EUA) process and has not full been FDA reviewed or approved. I shared potential risks from the therapy including transmission of blood borne pathogens such as HIV and hepatitis C., allergic and transfusion related reactions, posttransfusion purpura. Additionally theoretical risks including a phenomenon called antibody-dependent enhancement of infection such as is seen in dengue or attenuation of an immune response that may make patients more susceptible to re-infection. I discussed there are other potential treatment options that are currently not FDA approved to treat COVID-19. Offered opportunity to ask questions and all questions were answered. The patient voiced understanding and agreed to proceed with treatment for her. Vital signs trend Blood pressure:115-128/48-55 T-max 99.5 Heart rate 80-116 Pulse ox greater than 95% at 75% FiO2 New lab results ABGs pH 7.35 pCO2 49.2 pO2 60.0 HCO3 26.2 on simple mask at 10 liters 03/06/20 Feeling better and slept well in the prone position. Clinically improved Tolerating bipap and high flow O2 Day 4 of Remdesivir and dexamethasone Increase Lovenox dose to 1mg/kg bid Vital signs trend Blood pressure:106-152/59-86 T-max 98.5 Heart rate 74-87 Pulse ox 88-94% on high flow O2 at 50% New lab results ABGs pH 7.40 pCO2 46.2 pO2 68.0 HCO3 27.7 on biPAP D-dimer up from 0.74-1.77 Ferritin up from 321-344 CRP down from 12.8-3.1 Fibrinogen 494 03/07/20 Feeling better Clinically improved Titrating high flow O2 down Day 5 of Remdesivir and dexamethasone Taking po well Continues having diarrhea, but states it's much less than it had been Vital signs trend Blood pressure:131-143/49-70 T-max 98.6 Heart rate 76-84 Pulse ox 90-93% on FiO2 60% New lab results 03/08/20 Feeling better Clinically improved Continue titrating high flow O2 down to nasal cannula Day 6 of dexamethasone Taking po well Continues having diarrhea, but states it's much less than it had been Using IS Wants to go home. Vital signs trend Blood pressure:120-134/56-89 T-max 99.5 Heart rate 69-85 Pulse ox 91-93% on high flow O2 New lab results Ddimer down from 1.77 to 0.97 CRP down from 3.1 to 1.0 - Plan Plan:: Pneumonia due to COVID-19 virus Acute hypoxemic respiratory failure due to COVID-19 Tachycardia/Fever Remdesivir treatment completed Continue dexamethasone 6/10 days Pulse ox goal between 92 and 96% High flow O2 Maximum isolation precautions RT assess and treat Incentive spirometer and Acapella -Prone positioning Morbid obesity with BMI of 60.0-69.9, adult Hypoalbuminemia Dietary consult PROPHYLAXIS DVTLovenox 100 mg twice a day GInot indicated CODE STATUS: FULL CODE DISPOSITION: Patient with significant hypoxemia due to COVID pneumonia will remain admitted for dexamethasone. Oxygen supplementation is being provided and will taper down as tolerated. Plan for discharge in the next day or two pending oxygen titration.
[2020-03-08] MEDS: Dexamethasone 4 MG Tab PO SCH (14:32)
[2020-03-09] MEDS: Enoxaparin 100 MG/1 ML Syringe SUBCUT SCH ×2 (08:52→20:21)
--- NOTE | 2020-03-09 11:20 | PCM.PN ---
- General Info Date of Service: 03/09/20 Admission Dx/Problem (Free Text): Admission Diagnosis/Problem Admission Diagnosis/Problem Viral pneumonia Subjective Update: Feels good. Eating well. Doing IS. Want to go home. Functional Status: Reports: Tolerating Diet, Ambulating, Urinating, Incentive Spirometry - Review of Systems General: Reports: No Symptoms HEENT: Reports: No Symptoms Pulmonary: Reports: Cough. Denies: Sputum Cardiovascular: Reports: No Symptoms Gastrointestinal: Reports: No Symptoms Genitourinary: Reports: No Symptoms Musculoskeletal: Reports: No Symptoms Skin: Reports: No Symptoms Neurological: Reports: No Symptoms Psychiatric: Reports: No Symptoms - Patient Data Weight - Most Recent: 456 lb 3.2 oz - Exam Quality Assessment: Supplemental Oxygen (high flow O2-titrating down), DVT Prophylaxis (lovenox) General: Alert, Oriented, Cooperative HEENT: Pupils Equal, Mucous Membr. Moist/[place] Neck: Supple, Trachea Midline. No: Lymphadenopathy Lungs: Clear to Auscultation, Normal Respiratory Effort Cardiovascular: Regular Rate, Regular Rhythm GI/Abdominal Exam: Normal Bowel Sounds, Soft, Non-Tender, No Distention (Female) Exam: Deferred Back Exam: Normal Inspection, Full Range of Motion Extremities: Normal Inspection, Normal Range of Motion, Non-Tender, No Pedal Edema, Normal Capillary Refill Peripheral Pulses: 2+: Radial (L), Radial (R), Dorsalis Pedis (L), Dorsalis Pedis (R) Skin: Warm, Dry, Intact Neurological: No New Focal Deficit Psy/Mental Status: Alert, Normal Affect, Normal Mood Sepsis Event Note - Evaluation Sepsis Screening Result: No Definite Risk - Problem List & Annotations (1) Acute hypoxemic respiratory failure due to COVID-19 SNOMED Code(s): 361162695 Code(s): U07.1 - COVID-19; J96.01 - ACUTE RESPIRATORY FAILURE WITH HYPOXIA Status: Acute Priority: High Current Visit: Yes (2) Fever SNOMED Code(s): 572145412 Code(s): R50.9 - FEVER, UNSPECIFIED Status: Acute Priority: High Current Visit: Yes Qualifiers: Fever type: unspecified Qualified Code(s): R50.9 - Fever, unspecified (3) Hypoalbuminemia SNOMED Code(s): 778529129 Code(s): E88.09 - OT DISORDERS OF PLASMA-PROTEIN METABOLISM, NEC Status: Acute Priority: High Current Visit: Yes (4) Morbid obesity with BMI of 60.0-69.9, adult SNOMED Code(s): 748849595, 27266649963932 Code(s): E66.01 - MORBID (SEVERE) OBESITY DUE TO EXCESS CALORIES; Z68.44 - BODY MASS INDEX [BMI] 60.0-69.9, ADULT Status: Chronic Priority: High Current Visit: Yes (5) Pneumonia due to COVID-19 virus SNOMED Code(s): 484121088440498280 Code(s): U07.1 - COVID-19; J12.89 - OTHER VIRAL PNEUMONIA Status: Acute Current Visit: Yes (6) Tachycardia SNOMED Code(s): 8718355 Code(s): R00.0 - TACHYCARDIA, UNSPECIFIED Status: Acute Priority: High Current Visit: Yes - Problem List Review Problem List Initiated/Reviewed/Updated: Yes - My Orders Last 24 Hours: My Active Orders 03/10/20 05:11 CBC WITH AUTO DIFF [HEME] DAILY 03/11/20 05:11 CBC WITH AUTO DIFF [HEME] DAILY - Assessment Assessment:: 03/03/20 Diagnosed around 8 days ago Has been having worsening shortness of breath, orthopnea, fatigue, malaise, fevers and chills On arrival to emergency department she was satting 71% on room air--> placed on nasal cannula at 6 L/min--> pulse ox came up to 92% Vital signs on admission: Blood pressure 128/55 (79); heart rate 116; respiratory rate 32; temp: 1.2; pulse ox 91% on room air Chest x-ray with increased density on right lung mainly in upper and lower lung and diffusely on left lung Admit labs: WBC 5.19, 30% neutrophils, no bands D-dimer 0.72 GFR greater than 60 Ferritin 331, LDH 473, troponin 0.0 41 Albumin 3 ABGs7.41/39.6/60/24.6/80 on 6 L/min nasal cannula (44%) CTA of the chest suboptimal but no blood clots were seen and diffuse parenchymal densities within both sides of the chest PLAN Start Remdesivir to complete 5 days Start dexamethasone to complete 10 days Start Actemra x2 doses Order plasma infusion x2 Pulse ox goal between 92 and 96% Taper off nasal cannula as tolerated Maximum isolation precautions RT assess and treat Incentive spirometer and Acapella Procalcitonin level Dietary consult Prealbumin level Patient with significant hypoxemia due to COVID pneumonia will be admitted for Remdesivir, Actemra, dexamethasone and convalescent plasma infusions. Oxygen supplementation is being provided and will taper down as tolerated 03/04/20 Feeling better and slept well Clinically improved Vital signs trend Blood pressure:115-128/48-55 T-max 99.5 Heart rate 80-116 Pulse ox greater than 95% at 75% FiO2 New lab results D-dimer up from 0.72 L to 0.74 Ferritin down from 331-321 LDH up from 473-535 CRP down from 15.5-12.8 03/05/20 Feeling better and slept well Clinically improved Tolerating bipap Day 3 of Remdesivir Convalescent plasma today, 2 units I spoke with the patient to provide information about convalescent plasma for her. I offered her the "Fact sheet for Patients and Parents/Caregivers" for COVID-19 convalescent plasma to read and review. I stated the therapy has been approved by an emergency use authorization (EUA) process and has not full been FDA reviewed or approved. I shared potential risks from the therapy including transmission of blood borne pathogens such as HIV and hepatitis C., allergic and transfusion related reactions, posttransfusion purpura. Additionally theoretical risks including a phenomenon called antibody-dependent enhancement of infection such as is seen in dengue or attenuation of an immune response that may make patients more susceptible to re-infection. I discussed there are other potential treatment options that are currently not FDA approved to treat COVID-19. Offered opportunity to ask questions and all questions were answered. The patient voiced understanding and agreed to proceed with treatment for her. Vital signs trend Blood pressure:115-128/48-55 T-max 99.5 Heart rate 80-116 Pulse ox greater than 95% at 75% FiO2 New lab results ABGs pH 7.35 pCO2 49.2 pO2 60.0 HCO3 26.2 on simple mask at 10 liters 03/06/20 Feeling better and slept well in the prone position. Clinically improved Tolerating bipap and high flow O2 Day 4 of Remdesivir and dexamethasone Increase Lovenox dose to 1mg/kg bid Vital signs trend Blood pressure:106-152/59-86 T-max 98.5 Heart rate 74-87 Pulse ox 88-94% on high flow O2 at 50% New lab results ABGs pH 7.40 pCO2 46.2 pO2 68.0 HCO3 27.7 on biPAP D-dimer up from 0.74-1.77 Ferritin up from 321-344 CRP down from 12.8-3.1 Fibrinogen 494 03/07/20 Feeling better Clinically improved Titrating high flow O2 down Day 5 of Remdesivir and dexamethasone Taking po well Continues having diarrhea, but states it's much less than it had been Vital signs trend Blood pressure:131-143/49-70 T-max 98.6 Heart rate 76-84 Pulse ox 90-93% on FiO2 60% New lab results 03/08/20 Feeling better Clinically improved Continue titrating high flow O2 down to nasal cannula Day 6 of dexamethasone Taking po well Continues having diarrhea, but states it's much less than it had been Using IS Wants to go home. Vital signs trend Blood pressure:120-134/56-89 T-max 99.5 Heart rate 69-85 Pulse ox 91-93% on high flow O2 New lab results Ddimer down from 1.77 to 0.97 CRP down from 3.1 to 1.0 03/09/20 Feeling better Clinically improved Continue titrating high flow O2 down to nasal cannula Day 7 of dexamethasone Taking po well Continues having diarrhea, but states it's much less than it had been Using IS Wants to go home. Vital signs trend Blood pressure:125-135/50-62 T-max 98.5 Heart rate 74-85 Pulse ox 96% on high flow O2 New lab results CBC unremarkable - Plan Plan:: Pneumonia due to COVID-19 virus Acute hypoxemic respiratory failure due to COVID-19 Tachycardia/Fever Continue dexamethasone 7/10 days Pulse ox goal between 92 and 96% High flow O2 Maximum isolation precautions RT assess and wean O2 Incentive spirometer and Acapella -Prone positioning Morbid obesity with BMI of 60.0-69.9, adult Hypoalbuminemia Dietary consult PROPHYLAXIS DVTLovenox 100 mg twice a day GInot indicated CODE STATUS: FULL CODE DISPOSITION: Oxygen supplementation is being provided and will taper down as tolerated. Plan for discharge in the next day or two pending oxygen titration.
[2020-03-09] MEDS: Dexamethasone 4 MG Tab PO SCH (14:29)
[2020-03-09] MEDS: Famotidine 20 MG Tab PO SCH (20:21)
[2020-03-10] MEDS: Enoxaparin 100 MG/1 ML Syringe SUBCUT SCH (08:55)
[2020-03-10] MEDS: Famotidine 20 MG Tab PO SCH (08:55)
--- NOTE | 2020-03-10 13:58 | PCM.DCSUM1 ---
Discharge Summary - Hospital Course HPI Initial Comments: 20-year-old female presents to the ED due to increased dyspnea at home. As per patient was in usual state of health until last Thursday, February 24 with acute onset of fever chills and body aches and mild headache which continued to worsen Associated with decrease oral intake, dry cough, malaise, aches and pains, fever measured at 103. Has been having orthopnea, sleeping only in recliner. Has been using Tylenol and Motrin for fever and body ache relief. Loss of appetite for 3 days. Has been taking adequate fluids but only yogurt and a few other soft foods. No diarrhea. ASSESSMENT Diagnosed around 8 days ago Has been having worsening shortness of breath, orthopnea, fatigue, malaise, fevers and chills On arrival to emergency department she was satting 71% on room air--> placed on nasal cannula at 6 L/min--> pulse ox came up to 92% Vital signs on admission: Blood pressure 128/55 (79); heart rate 116; respiratory rate 32; pulse ox 91% on room air Chest x-ray with increased density on right lung mainly in upper and lower lung and diffusely on left lung Admit labs: WBC 5.19, 30% neutrophils, no bands D-dimer 0.72 GFR greater than 60 Ferritin 331, LDH 473, troponin 0.0 41 Albumin 3 ABGs7.41/39.6/60/24.6/80 on 6 L/min nasal cannula (44%) CTA of the chest suboptimal but no blood clots were seen and diffuse parenchymal densities within both sides of the chest PLAN Pneumonia due to COVID-19 virus Acute hypoxemic respiratory failure due to COVID-19 Tachycardia/Fever Start Remdesivir to complete 5 days Start dexamethasone to complete 10 days Start Actemra x2 doses Order plasma infusion x2 Pulse ox goal between 92 and 96% Taper off nasal cannula as tolerated Maximum isolation precautions RT assess and treat Incentive spirometer and Acapella Procalcitonin level Morbid obesity with BMI of 60.0-69.9, adult Hypoalbuminemia Dietary consult Prealbumin level PROPHYLAXIS DVTLovenox 40 mg twice a day GInot indicated CODE STATUS: FULL CODE DISPOSITION: Patient with significant hypoxemia due to COVID pneumonia will be admitted for Remdesivir, Actemra, dexamethasone and convalescent plasma infusions. Oxygen supplementation is being provided and will taper down as tolerated Diagnosis: Stroke: No - Discharge Data Discharge Date: 03/10/20 Discharge Disposition: Home, Self-Care 01 Condition: Good - Referral to Home Health Primary Care Physician: SHELLEY Barron - Discharge Diagnosis/Problem(s) (1) UTI (urinary tract infection) SNOMED Code(s): 52113642 ICD Code: N39.0 - URINARY TRACT INFECTION, SITE NOT SPECIFIED Status: Acute Current Visit: Yes Qualifiers: Urinary tract infection type: acute cystitis Hematuria presence: with hematuria Qualified Code(s): N30.01 - Acute cystitis with hematuria (2) Acute hypoxemic respiratory failure due to COVID-19 SNOMED Code(s): 551946619 ICD Code: U07.1 - COVID-19; J96.01 - ACUTE RESPIRATORY FAILURE WITH HYPOXIA Status: Acute Priority: High Current Visit: Yes (3) Pneumonia due to COVID-19 virus SNOMED Code(s): 880824202011592794 ICD Code: U07.1 - COVID-19; J12.89 - OTHER VIRAL PNEUMONIA Status: Acute Current Visit: Yes (4) Morbid obesity with BMI of 60.0-69.9, adult SNOMED Code(s): 583039286, 48261713420024 ICD Code: E66.01 - MORBID (SEVERE) OBESITY DUE TO EXCESS CALORIES; Z68.44 - BODY MASS INDEX [BMI] 60.0-69.9, ADULT Status: Chronic Priority: High Current Visit: Yes - Patient Summary/Data Consults: Consultations 03/03/20 17:35 Consult to Case Management/Chief Green Officer [CONS] Routine 03/05/20 10:41 Consult to Dietary [Consult to Home Energy Auditor] [CONS] Routine 03/06/20 08:46 OT Evaluation and Treatment [CONS] Routine PT Evaluation and Treatment [CONS] Routine Hospital Course: Assessment:: 03/03/20 Diagnosed around 8 days ago Has been having worsening shortness of breath, orthopnea, fatigue, malaise, fevers and chills On arrival to emergency department she was satting 71% on room air--> placed on nasal cannula at 6 L/min--> pulse ox came up to 92% Vital signs on admission: Blood pressure 128/55 (79); heart rate 116; respiratory rate 32; temp: 1.2; pulse ox 91% on room air Chest x-ray with increased density on right lung mainly in upper and lower lung and diffusely on left lung Admit labs: WBC 5.19, 30% neutrophils, no bands D-dimer 0.72 GFR greater than 60 Ferritin 331, LDH 473, troponin 0.0 41 Albumin 3 ABGs7.41/39.6/60/24.6/80 on 6 L/min nasal cannula (44%) CTA of the chest suboptimal but no blood clots were seen and diffuse parenchymal densities within both sides of the chest PLAN Start Remdesivir to complete 5 days Start dexamethasone to complete 10 days Start Actemra x2 doses Order plasma infusion x2 Pulse ox goal between 92 and 96% Taper off nasal cannula as tolerated Maximum isolation precautions RT assess and treat Incentive spirometer and Acapella Procalcitonin level Dietary consult Prealbumin level Patient with significant hypoxemia due to COVID pneumonia will be admitted for Remdesivir, Actemra, dexamethasone and convalescent plasma infusions. Oxygen supplementation is being provided and will taper down as tolerated 03/04/20 Feeling better and slept well Clinically improved Vital signs trend Blood pressure:115-128/48-55 T-max 99.5 Heart rate 80-116 Pulse ox greater than 95% at 75% FiO2 New lab results D-dimer up from 0.72 L to 0.74 Ferritin down from 331-321 LDH up from 473-535 CRP down from 15.5-12.8 03/05/20 Feeling better and slept well Clinically improved Tolerating bipap Day 3 of Remdesivir Convalescent plasma today, 2 units I spoke with the patient to provide information about convalescent plasma for her. I offered her the "Fact sheet for Patients and Parents/Caregivers" for COVID-19 convalescent plasma to read and review. I stated the therapy has been approved by an emergency use authorization (EUA) process and has not full been FDA reviewed or approved. I shared potential risks from the therapy including transmission of blood borne pathogens such as HIV and hepatitis C., allergic and transfusion related reactions, posttransfusion purpura. Additionally theoretical risks including a phenomenon called antibody-dependent enhancement of infection such as is seen in dengue or attenuation of an immune response that may make patients more susceptible to re-infection. I discussed there are other potential treatment options that are currently not FDA approved to treat COVID- 19. Offered opportunity to ask questions and all questions were answered. The patient voiced understanding and agreed to proceed with treatment for her. Vital signs trend Blood pressure:115-128/48-55 T-max 99.5 Heart rate 80-116 Pulse ox greater than 95% at 75% FiO2 New lab results ABGs pH 7.35 pCO2 49.2 pO2 60.0 HCO3 26.2 on simple mask at 10 liters 03/06/20 Feeling better and slept well in the prone position. Clinically improved Tolerating bipap and high flow O2 Day 4 of Remdesivir and dexamethasone Increase Lovenox dose to 1mg/kg bid Vital signs trend Blood pressure:106-152/59-86 T-max 98.5 Heart rate 74-87 Pulse ox 88-94% on high flow O2 at 50% New lab results ABGs pH 7.40 pCO2 46.2 pO2 68.0 HCO3 27.7 on biPAP D-dimer up from 0.74-1.77 Ferritin up from 321-344 CRP down from 12.8-3.1 Fibrinogen 494 03/07/20 Feeling better Clinically improved Titrating high flow O2 down Day 5 of Remdesivir and dexamethasone Taking po well Continues having diarrhea, but states it's much less than it had been Vital signs trend Blood pressure:131-143/49-70 T-max 98.6 Heart rate 76-84 Pulse ox 90-93% on FiO2 60% New lab results 03/08/20 Feeling better Clinically improved Continue titrating high flow O2 down to nasal cannula Day 6 of dexamethasone Taking po well Continues having diarrhea, but states it's much less than it had been Using IS Wants to go home. Vital signs trend Blood pressure:120-134/56-89 T-max 99.5 Heart rate 69-85 Pulse ox 91-93% on high flow O2 New lab results Ddimer down from 1.77 to 0.97 CRP down from 3.1 to 1.0 03/09/20 Feeling better Clinically improved Continue titrating high flow O2 down to nasal cannula Day 7 of dexamethasone Taking po well Continues having diarrhea, but states it's much less than it had been Using IS Wants to go home. Vital signs trend Blood pressure:125-135/50-62 T-max 98.5 Heart rate 74-85 Pulse ox 96% on high flow O2 New lab results CBC unremarkable 03/10/2020 Melida continues to improve. She is down to 3 L nasal cannula and is able to tolerate ambulation on her own. Her appetite is improving and vital signs are stable. Patient is on day 8 of dexamethasone and has completed remdesivir, Actemra, and convalescent plasma. She does complain of cloudy/bloody urine. She denies significant pain or fever. UA was positive for greater than 100 WBC and RBC. She was sent home on cefditoren pivoxil (due to insurance demands) which is a third generation cephalosporin. Since patient is going home on O2 I elected to broaden her antibiotic coverage. She is able to discharge home on oxygen. She will be staying with her family and has a home pulse oximetry received from the [employer]. She will keep her oxygen saturations above 90%. - Patient Instructions Diet: Usual Diet as Tolerated Activity: As Tolerated Driving: Do Not Drive Showering/Bathing: May Shower Notify Provider of: Fever (Shortness of breath) Other/Special Instructions: Finish antibiotics. Follow up with PCP in 1 week. Use home oximetry to determine the amount of oxygen needed to keep your oxygen saturations greater than 90%. - Discharge Plan *PRESCRIPTION DRUG MONITORING PROGRAM REVIEWED*: No *COPY OF PRESCRIPTION DRUG MONITORING REPORT IN PATIENT VEE: No Prescriptions/Med Rec: cefDITORen pivoxiL [Cefditoren Pivoxil] 400 mg PO BID #10 tablet dexAMETHasone [Decadron] 6 mg PO DAILY #2 tablet Famotidine [Heartburn Prevention] 20 mg PO BID #60 tablet Home Medications: Home Meds Spironolactone [Aldactone] 50 mg PO BID 03/03/20 [History] Famotidine [Heartburn Prevention] 20 mg PO BID #60 tablet 03/10/20 [Rx] cefDITORen pivoxiL [Cefditoren Pivoxil] 400 mg PO BID #10 tablet 03/10/20 [Rx] dexAMETHasone [Decadron] 6 mg PO DAILY #2 tablet 03/10/20 [Rx] Oxygen Therapy Mode: Nasal Cannula Oxygen Flow Rate (L/min): 3 Maintain SpO2% greater than: 90 Patient Handouts: COVID-19 Frequently Asked Questions, COVID-19, COVID-19: How to Protect Yourself and Others - CDC, Coronavirus Information 03/16/20, Prevent the Spread of COVID-19 if You Are Sick - CDC, Sepsis, Self Care, Adult Forms: ED Department Discharge Referrals: Cheyenne Moseley PA-C [Primary Care Provider] - - Discharge Summary/Plan Comment DC Time >30 min.: Yes Discharge Summary/Plan Comment: Discharged home in stable condition on 3 L nasal cannula. Wean oxygen off over the next several days. You have 2 more days of dexamethasone. Follow-up with your primary care provider in 1 week. You also have a UTI. Finish antibiotics. - General Info Date of Service: 03/10/20 Admission Dx/Problem (Free Text: Admission Diagnosis/Problem Admission Diagnosis/Problem Viral pneumonia Subjective Update: Complains of cloudy urine that is blood-tinged. Otherwise she feels well and her appetite is improving. Afebrile. Functional Status: Reports: Pain Controlled - Review of Systems General: Reports: No Symptoms HEENT: Reports: No Symptoms Pulmonary: Reports: No Symptoms Cardiovascular: Reports: No Symptoms Gastrointestinal: Reports: No Symptoms Genitourinary: Reports: Hematuria Musculoskeletal: Reports: No Symptoms - Patient Data Vitals - Most Recent: Last Vital Signs Temp 98.4 F 03/10/20 12:05 Pulse 95 03/10/20 12:05 Resp 18 03/10/20 12:05 BP 122/73 03/10/20 12:05 Pulse Ox 95 03/10/20 12:05 Weight - Most Recent: 207.382 kg I&O - Last 24 hours: Intake & Output 03/09/20 03/10/20 03/10/20 22:59 06:59 14:59 Intake Total 330 1400 Output Total 1250 1300 Balance -920 100 Lab Results - Last 24 hrs: Laboratory Results - last 24 hr 03/10/20 03/10/20 Range/Units 06:39 13:20 WBC 8.81 (3.98-10.04) K/mm3 RBC 5.12 (3.98-5.22) M/mm3 Hgb 14.7 (11.2-15.7) gm/dl Hct 46.7 H (34.1-44.9) % MCV 91.2 (79.4-94.8) fl MCH 28.7 (25.6-32.2) pg MCHC 31.5 L (32.2-35.5) g/dl RDW Std Deviation 48.0 H (36.4-46.3) fL Plt Count 519 H (182-369) K/mm3 MPV 9.3 L (9.4-12.3) fl Neut % (Auto) 82.0 H (34.0-71.1) % Lymph % (Auto) 12.3 L (19.3-51.7) % [place] % (Auto) 5.1 (4.7-12.5) % Eos % (Auto) 0 L (0.7-5.8) Baso % (Auto) 0.1 (0.1-1.2) % Neut # (Auto) 7.23 H (1.56-6.13) K/mm3 Lymph # (Auto) 1.08 L (1.18-3.74) K/mm3 [place] # (Auto) 0.45 H (0.24-0.36) K/mm3 Eos # (Auto) 0.00 L (0.04-0.36) K/mm3 Baso # (Auto) 0.01 (0.01-0.08) K/mm3 Manual Slide Review Normal smear Urine Color Yellow (Yellow) Urine Appearance Cloudy H (Clear) Urine pH 6.0 (5.0-8.0) Ur Specific [place] > or = 1.030 (1.005-1.030) Urine Protein 1+ H (Negative) Urine Glucose (UA) Negative (Negative) Urine Ketones Negative (Negative) Urine Occult Blood 2+ H (Negative) Urine Nitrite Positive H (Negative) Urine Bilirubin Negative (Negative) Urine Urobilinogen 0.2 (0.2-1.0) Ur Leukocyte Esterase 2+ H (Negative) Urine RBC >100 H (0-5) /hpf Urine WBC >100 H (0-5) /hpf Ur Squamous Epith Cells 0-5 (0-5) /hpf Urine Bacteria Many H (FEW) /hpf Urine Mucus Not seen (FEW) /hpf Med Orders - Current: Current Medications Acetaminophen (Tylenol) 650 mg PO Q4H PRN PRN Reason: Pain (Mild 1-3)/fever Last Admin: 03/04/20 21:28 Dose: 650 mg Documented by: Dexamethasone (Dexamethasone) 6 mg PO Q24H [facility] Stop: 03/12/20 15:01 Last Admin: 03/09/20 14:29 Dose: 6 mg Documented by: Enoxaparin Sodium (Lovenox) 100 mg SUBCUT Q12H [facility] Last Admin: 03/10/20 08:55 Dose: 100 mg Documented by: Famotidine (Pepcid) 20 mg PO BID [facility] Last Admin: 03/10/20 08:55 Dose: 20 mg Documented by: Ondansetron HCl (Zofran) 4 mg IV Q6H PRN PRN Reason: Nausea/Vomiting Ondansetron HCl (Zofran Odt) 4 mg PO Q6H PRN PRN Reason: nausea, able to take PO Discontinued Medications Acetaminophen (Tylenol) 975 mg PO ONETIME ONE Stop: 03/03/20 15:17 Last Admin: 03/03/20 16:11 Dose: 975 mg Documented by: Dexamethasone (Dexamethasone) 6 mg IVPUSH Q24H [facility] Last Admin: 03/04/20 15:27 Dose: 6 mg Documented by: Enoxaparin Sodium (Lovenox) 40 mg SUBCUT Q12H [facility] Last Admin: 03/03/20 20:16 Dose: 40 mg Documented by: Enoxaparin Sodium (Lovenox) 40 mg SUBCUT Q12H [facility] Last Admin: 03/06/20 09:06 Dose: 40 mg Documented by: Dextrose/Sodium Chloride (Dextrose 5%-Normal Saline) 1,000 mls @ 200 mls/hr IV ASDIRECTED [facility] Last Admin: 03/04/20 03:40 Dose: 200 mls/hr Documented by: Remdesivir 100 mg/ Sodium (Chloride) 100 mls @ 100 mls/hr IV Q24H [facility] Stop: 03/07/20 15:59 Last Admin: 03/07/20 15:18 Dose: 100 mls/hr Documented by: Remdesivir 200 mg/ Sodium (Chloride) 250 mls @ 250 mls/hr IV ONETIME STA Stop: 03/03/20 14:52 Last Admin: 03/03/20 15:55 Dose: 250 mls/hr Documented by: Sodium Chloride (Normal Saline) 100 mls @ 75 mls/hr IV ASDIRECTED [facility] Last Admin: 03/03/20 17:00 Dose: 75 mls/hr Documented by: Tocilizumab 800 mg/ Sodium (Chloride) 100 mls @ 100 mls/hr IV Q12H [facility] Stop: 03/04/20 09:59 Last Admin: 03/04/20 06:54 Dose: Not Given Documented by: Tocilizumab 800 mg/ Sodium (Chloride) 100 mls @ 100 mls/hr IV Q12H [facility] Stop: 03/04/20 21:59 Last Admin: 03/04/20 10:43 Dose: 100 mls/hr Documented by: Tocilizumab 800 mg/ Sodium (Chloride) 100 mls @ 100 mls/hr IV Q12H [facility] Stop: 03/04/20 21:59 Last Admin: 03/04/20 21:16 Dose: 100 mls/hr Documented by: Sodium Chloride (Normal Saline) 250 mls @ 50 mls/hr IV ASDIRECTED [facility] Stop: 03/06/20 00:44 Influenza Virus Vaccine (Fluzone Quad Syringe) 60 mcg IM .ONCE ONE Stop: 03/08/20 10:16 Iopamidol (Isovue-370 (76%)) 50 ml IVPUSH ONETIME ONE Stop: 03/03/20 16:12 Last Admin: 03/03/20 16:59 Dose: 50 ml Documented by: Iopamidol (Isovue-370 (76%)) 100 ml IVPUSH ONETIME ONE Stop: 03/03/20 16:12 Last Admin: 03/03/20 16:59 Dose: 100 ml Documented by: Potassium Chloride (Klor-Con M20) 20 meq PO ONETIME ONE Stop: 03/07/20 09:45 Last Admin: 03/07/20 12:04 Dose: 20 meq Documented by: Sodium Chloride (Saline Flush) 10 ml FLUSH ONETIME PRN PRN Reason: IV FLUSH Last Admin: 03/03/20 16:59 Dose: 10 ml Documented by: Tocilizumab (Actemra) 800 mg IV Q12HR [facility] Stop: 03/04/20 09:01 - Exam Quality Assessment: Reports: Supplemental Oxygen General: Reports: Alert, Oriented HEENT: Reports: Pupils Equal, Mucous Membr. Moist/[place] Neck: Reports: Supple Lungs: Reports: Clear to Auscultation, Normal Respiratory Effort Cardiovascular: Reports: Regular Rate, Regular Rhythm GI/Abdominal Exam: Normal Bowel Sounds, Soft, Non-Tender, No Distention, No Abnormal Bruit Back Exam: Reports: Normal Inspection, Full Range of Motion Extremities: Normal Inspection, Non-Tender, No Pedal Edema Skin: Reports: Warm, Dry, Intact Psy/Mental Status: Reports: Alert, Normal Affect, Normal Mood
[2020-03-10] MEDS ORDERED: FLU VACC QS2020-21(6MOS UP)/PF 60 MCG/0.5 ML SYRINGE IM ONE (14:45)
[2020-03-10] MEDS: Dexamethasone 4 MG Tab PO SCH (15:15)
== END 2020-03-10 15:50 | disposition home or self-care (01) | DRG 137 ==
LOC: SUPCPDRO 13:22 → JD.ED 13:22 → JD.MS 17:35
PROVIDERS: ADMIT Internal Medicine; ATTEND Internal Medicine
PROC: XW033E5 Introduction of Remdesivir Anti-infective into Peripheral Vein, Percutaneous Approach, New Technology Group 5 (ICD-10-PCS; principal; 2020-03-03)
PROC: XW13325 Transfusion of Convalescent Plasma (Nonautologous) into Peripheral Vein, Percutaneous Approach, New Technology Group 5 (ICD-10-PCS; 2020-03-03)
PROC: 8E0ZXY6 Isolation (ICD-10-PCS; 2020-03-03)
PROC: XW033E5 Introduction of Remdesivir Anti-infective into Peripheral Vein, Percutaneous Approach, New Technology Group 5 (ICD-10-PCS; 2020-03-04)
PROC: XW033E5 Introduction of Remdesivir Anti-infective into Peripheral Vein, Percutaneous Approach, New Technology Group 5 (ICD-10-PCS; 2020-03-05)
PROC: XW033E5 Introduction of Remdesivir Anti-infective into Peripheral Vein, Percutaneous Approach, New Technology Group 5 (ICD-10-PCS; 2020-03-06)
PROC: 5A0945A Assistance with Respiratory Ventilation, 24-96 Consecutive Hours, High Flow/Velocity Cannula (ICD-10-PCS; 2020-03-06)
PROC: XW033E5 Introduction of Remdesivir Anti-infective into Peripheral Vein, Percutaneous Approach, New Technology Group 5 (ICD-10-PCS; 2020-03-07)
DX: U07.1 COVID-19 (principal); J12.89 Other viral pneumonia; J96.01 Acute respiratory failure with hypoxia; E66.01 Morbid (severe) obesity due to excess calories; E88.09 Other disorders of plasma-protein metabolism, not elsewhere classified; N30.01 Acute cystitis with hematuria; Z68.44 Body mass index [BMI] 60.0-69.9, adult; Z79.899 Other long term (current) drug therapy; R00.0 Tachycardia, unspecified
CPT/HCPCS: 36415; 36430; 36600; 71045; 71045-26; 71275; 71275-26; 80048; 80053; 81001; 82550; 82728; 82803; 83615; 83735; 83880; 84100; 84443; 84484; 84703; 85007; 85025; 85027; 85379; 85384; 85610; 85730; 86140; 86900; 86901; 87086; 87088; 87186; 90686; 93005; 93010; 94660; 94761; 94762; 96361; 96365; 97110-GP; 97162-GP; 99284; 99285-25; A9270-GY; G0008; J1100; J1650; J3262; J7042; J7050; J8540; P9017; Q9967